=== PATIENT | female | born 1950 | race Caucasian/White ===

== ENCOUNTER 2018-01-20 05:52 | Inpatient (IN) | payer BC ==
[2018-01-20] MEDS ORDERED: oxyCODONE HCL 10 MG SUSTAINED ACTING TABLET PO ONE (06:28)
[2018-01-20] MEDS ORDERED: TRANEXAMIC ACID 1000 MG/10 ML VIAL IVPUSH ONE (06:28)
[2018-01-20] MEDS ORDERED: CEFAZOLIN 2 GM/D5W 2 GM/50 ML ML IVPB ONE (06:28)
[2018-01-20] MEDS ORDERED: GABAPENTIN 300 MG CAPSULE (FP) PO ONE (06:28)
[2018-01-20] MEDS ORDERED: CELECOXIB 200 MG CAPSULE PO ONE (06:28)
[2018-01-20] MEDS ORDERED: GABAPENTIN 300 MG CAPSULE (FP) ONE (06:37)
[2018-01-20] MEDS ORDERED: oxyCODONE HCL 10 MG SUSTAINED ACTING TABLET ONE (06:37)
[2018-01-20] MEDS ORDERED: CELECOXIB 200 MG CAPSULE ONE (06:37)
[2018-01-20 06:59] VITALS: BMI 37.5
[2018-01-20] MEDS ORDERED: MIDAZOLAM HCL 2 MG/2 ML SINGLE DOSE VIAL ONE ×3 (07:06→07:55)
[2018-01-20] MEDS ORDERED: SUCCINYLCHOLINE CHLORIDE 200 MG/10 ML VIAL ONE (07:10)
[2018-01-20] MEDS ORDERED: LIDOCAINE HCL/PF 2% SDV 5ML VIAL ONE (07:11)
[2018-01-20] MEDS ORDERED: PROPOFOL 20 ML ONE ×4 (07:12→08:35)
[2018-01-20] MEDS ORDERED: SODIUM CHLORIDE 0.9% P/F 10 ML VIAL IJ ONE (07:16)
[2018-01-20] MEDS ORDERED: ceFAZolin SODIUM 1 GM VIAL ONE ×2 (07:18→08:17)
[2018-01-20] MEDS ORDERED: VANCOMYCIN 1,000 MG VIAL (RESTRICTED TO ID ONLY) ONE (07:18)
[2018-01-20] MEDS ORDERED: BUPIVACAINE LIPOSOME/PF (EXPAREL) 266 MG/20 ML VIAL ONE (07:18)
--- NOTE | 2018-01-20 07:55 | HP ---
Satellite [facility] - Chief Complaint Chief Complaint: right knee pain - Past Medical History Allergies/Adverse Reactions: Allergies Allergy/AdvReac Type Severity Reaction Status Date / Time clindamycin AdvReac Severe Vomiting Verified 01/09/18 17:30 erythromycin base AdvReac Severe Vomiting Verified 09/19/15 17:33 [Erythromycin Base] - Current Medications Current Medications: Home Medications Medication Instructions Recorded Ascorbic Acid [Vitamin C -] 500 mg PO DAILY #0 tablet 01/01/13 Atorvastatin Ca [Lipitor] 10 mg PO HS #0 tablet 01/01/13 Furosemide [Lasix -] 40 mg PO DAILY #0 tablet 01/01/13 Nifedipine ER [Procardia XL -] 90 mg PO HS #0 tab.er.24 01/01/13 Cholecalciferol (Vitamin D3) 1,000 unit PO DAILY 09/19/15 [Vitamin D] Vitamin B Complex Vit C No.4 150 mg PO DAILY 09/19/15 [Super B Complex] Ibandronate Sodium [Boniva] 3 mg IV MONTHLY 01/09/18 Irbesartan [Avapro] 300 mg PO DAILY 01/09/18 Potassium Chloride [K-Dur -] 20 meq PO DAILY 01/09/18 Satellite Physical Exam - Physical Examination Vital Signs: Vital Signs Period Temp Pulse Resp BP Sys/Tomlinson Pulse Ox Last 24 Hr 97.7 F 88 18 148/70 General Appearance: Well Nourished, Well Developed, Alert & Oriented x3 ENT: Clear Lung: Normal air movement Heart: Regular rate & rhythm Extremities: Other (right knee- + swelling, + ttp, decr rom, nvi xrays show grade 4 tricompartmental djd) Neurological: Intact, Alert, Oriented Satellite Impression/Plan - Impression/Plan Impression: right knee djd Operative Procedure: right zoe tkr Date to be Performed: 01/20/18
[2018-01-20] MEDS ORDERED: TRANEXAMIC ACID 1000 MG/10 ML VIAL ONE (08:17)
[2018-01-20] MEDS ORDERED: KETOROLAC TROMETHAMINE 30 MG/1 ML VIAL ONE (08:50)
[2018-01-20] MEDS ORDERED: MAGNESIUM HYDROX 2400MG/30ML ORAL SUSPENSION 30 ML CUP PO PRN (09:55)
[2018-01-20] MEDS ORDERED: MAG HYDROX/AL HYDROX/SIMETH 30 ML UNIT-DOSE CUP PO PRN (09:55)
[2018-01-20] MEDS ORDERED: ONDANSETRON 4 MG/2 ML VIAL IVPUSH PRN ×2 (09:55→10:06)
--- NOTE | 2018-01-20 09:57 | OP ---
Operative Note - Note: Operative Date: 01/20/18 (francis) Pre-Operative Diagnosis: right knee djd Operation: right zoe tkr Post-Operative Diagnosis: Same as Pre-op Surgeon: Kevin Parker Mainframe Systems Administrator: Steve Ferguson) Anesthesiologist/STUDY COORDINATOR: Charlie Israel Anesthesia: Spinal, Local Specimens Removed: bone fragments Estimated Blood Loss (mls): 100 Operative Report Dictated: Yes
[2018-01-20] MEDS ORDERED: LACTATED RINGERS SOLUTION 1,000 ML IV SCH ×2 (10:00→10:15)
[2018-01-20] MEDS ORDERED: PATIENT'S OWN MEDICATION (NON-FORMULARY) (Irbesartan [Avapro] 300 MG) PO SCH (10:00)
[2018-01-20] MEDS ORDERED: POTASSIUM CHLORIDE TABS 20 MEQ TABLET.ER (FP) PO SCH (10:00)
[2018-01-20] MEDS ORDERED: oxyCODONE HCL 5 MG TABLET PO PRN (10:06)
[2018-01-20] MEDS ORDERED: ACETAMINOPHEN 1000 MG/100 ML VIAL (NON FORMULARY) IVPB ONE (10:06)
[2018-01-20] MEDS ORDERED: ONDANSETRON 4 MG/2 ML VIAL ONE (10:48)
[2018-01-20] MEDS: oxyCODONE HCL 5 MG TABLET PO PRN ×3 (13:19→20:00)
[2018-01-20] MEDS: CEFAZOLIN 2 GM/D5W 2 GM/50 ML ML IVPB SCH (16:02)
[2018-01-20] MEDS: ACETAMINOPHEN 325 MG TABLET (FP) PO SCH (17:46)
--- NOTE | 2018-01-20 20:16 | SPEC ---
DATE OF OPERATION: 01/20/2018 PREOPERATIVE DIAGNOSIS: Degenerative joint disease, right knee. POSTOPERATIVE DIAGNOSIS: Degenerative joint disease, right knee. PROCEDURE: Right total knee replacement with robotic-assisted navigation (Makoplasty). SURGICAL ATTENDING: Kevin Parker MD ATV MECHANIC: LAMONT Marcano and Jose Tafoya MD ANESTHESIA: Regional and spinal. CLOSURE: A cemented Triathlon knee system with a 4 femur, 4 tibia, 9 polyethylene, 32 patella, No. 1 Vicryl fascia, 0 and 2-0 subcutaneous, 3-0 Monocryl subcuticular with skin glue for skin, 4-0 undyed Vicryl for pin sites. ESTIMATED BLOOD LOSS: Less than 100 mL. COMPLICATIONS: None. CONDITION: To recovery room in stable condition. DESCRIPTION OF OPERATIVE PROCEDURE: Patient was taken to the operating room on January 20, 2018. Regional and general anesthesia was administered by the anesthesiologist. IV Kefzol and TXA were administered by the anesthesiologist. Well-padded pneumatic tourniquet was placed on the proximal thigh. The right lower extremity was prepped and draped in the usual sterile fashion. The leg was exsanguinated with an Esmarch bandage, and tourniquet was inflated to 275 mmHg. A 12- to 15-cm longitudinal midline incision was incised while centered over the patella. The dissection was carried down to the level of the extensor mechanism with sufficient flaps made to adequately perform the procedure. A medial parapatellar arthrotomy was then performed. We made a cuff of tissue on the patella for later closure. The patella was inverted, the knee was flexed up. The fat pad was excised. The subperiosteal dissection was on the anteromedial proximal tibia around towards the direction of the MCL. The ACL and the PCL were transected and debrided. The meniscal remnants of the medial and lateral meniscus were debrided and removed. This allowed the knee to be able to "be brought forward." The checkpoints were malleted into the tibia and into the femur. Two threaded pins were drilled anteroposteriorly proximal to the knee through the previous incision, through the anterior cortex, then just engaging the posterior cortex. To these pins was assembled the femoral navigation array. One handbreadth below the tibial tubercle, 2 stab incisions were used to drill 2 threaded pins in parallel fashion into the tibia, again through the anterior cortex and just engaging the posterior cortex. To these pins was fastened the tibial arrays. The knee was then registered with the navigation device with center of rotation of the hip, medial and lateral malleoli, both checkpoints, and multiple points on both the femur and the tibia to ensure excellent registration. The navigation device was directed off the "top of the bubbles" on both the femur and the tibia. The navigation passed within less than 0.5 mm to plan. The knee was then thoroughly inspected to remove all osteophytes both medially, laterally, and on the femur and the tibia, and whatever osteophytes were available for dissection. The knee was then taken to extension and to flexion and stressed in both varus and valgus to assess flexion gaps. The virtual position of the components on the navigation device were then manipulated to optimize the position and to ensure equal gaps in both flexion and extension, and both medially and laterally. The robot was then brought into the field and was registered. The cuts were then made both on the femur and on the tibia as to plan. All osteophytes posteriorly were then removed as well. The gaps were then measured again in flexion and extension to be equal in both flexion and extension and medial and laterally. The femoral notch was then made, as we were doing a posterior stabilizing component, with the appropriate sized box. Trial reduction of the femur achieved excellent [id number] fit. A tibial baseplate of appropriate polyethylene thickness was "floated in the knee." It was ensured to be in the excellent position by navigation devices and was pinned in place. The knee was taken through a range of motion and found to have excellent stability throughout flexion and extension. The patella was calibrated for thickness and osteotomized down to the appropriate level. The appropriate lollipop was used to drill the lug holes in the patella and the trial button was applied. The knee was taken through a range of motion and found to have excellent tracking of the patella, and patella from full extension to full flexion. Trial components were removed, the keel was punched and drilled, and a sclerotic bone on the tibia was drilled to help with cement interdigitation. The knee was thoroughly irrigated with the pulse antibiotic abrasive band winder. The real components were then cemented in using monitored arrangement cement techniques with antibiotic cement, and pressurization and extension. After the cement was hardened, the knee was thoroughly inspected to remove any extra cement. The real polyethylene component was then clipped into place. Range of motion, stability, and tracking were as described earlier. The checkpoints and the pins were removed. The knee was thoroughly irrigated with antibiotic irrigation. Vancomycin powder was placed into the knee for antibiotic prophylaxis. The medial parapatellar arthrotomy was then closed using number 1 Vicryl interrupted suture. After closure of the deep layer, the knee was taken through a range of motion, and found to have excellent stability of the patella with no dislocation and no undue tension on the repair. The subcutaneous was pulse antibiotic irrigated, and was then closed with 2-0 Vicryl, 3-0 Monocryl subcuticular with the skin glue for the skin. The distal tibial pin site was irrigated thoroughly as well and then closed with 4-0 undyed Vicryl. A sterile Aquacel dressing was applied, followed by a Barker dressing. Tourniquet was deflated. Total tourniquet time was approximately 75 minutes. No complications. Patient was awakened from anesthesia and transferred to recovery room in stable condition. Postoperative x-rays revealed excellent position of the components. Ayan [id number]
[2018-01-20] MEDS: oxyCODONE HCL 10 MG SUSTAINED ACTING TABLET PO SCH (21:50)
[2018-01-20] MEDS: ATORVASTATIN CA 10 MG TABLET (FP) PO SCH (21:50)
[2018-01-20] MEDS: NIFEdipine E.R. 90 MG TABLET (FP) PO SCH (21:50)
[2018-01-20] MEDS: SENNOSIDES/DOCUSATE COMBO (SENNA PLUS) TABLET (UD) PO SCH (21:50)
[2018-01-21] MEDS: CEFAZOLIN 2 GM/D5W 2 GM/50 ML ML IVPB SCH
[2018-01-21] MEDS: ACETAMINOPHEN 325 MG TABLET (FP) PO SCH ×5 (01:42→17:42)
[2018-01-21] MEDS: oxyCODONE HCL 5 MG TABLET PO PRN ×3 (01:43→10:14)
[2018-01-21] MEDS: ASPIRIN 325 MG TABLET PO SCH (08:31)
[2018-01-21 08:58] LABS: HEMATOCRIT 35.8 % (32.4-45.2); HEMOGLOBIN 12.1 GM/dl (10.7-15.3); MCH 29.8 pg (25.7-33.7); MCHC 33.6 g/dl (32.0-36.0); MEAN CELL VOLUME 88.6 fl (80-96); MEAN PLT VOLUME 7.4 fl (7.5-11.1); PLATELET COUNT 251 K/MM3 (134-434); RBC 4.05 M/mm3 (3.60-5.2); RDW 12.9 % (11.6-15.6); WHITE BLOOD COUNT 9.4 K/mm3 (4.0-10.8)
[2018-01-21] MEDS: oxyCODONE HCL 10 MG SUSTAINED ACTING TABLET PO SCH ×2 (10:08→22:18)
[2018-01-21] MEDS: PANTOPRAZOLE 40 MG TABLET (FP) PO SCH (10:09)
[2018-01-21] MEDS: POTASSIUM CHLORIDE TABS 20 MEQ TABLET.ER (FP) PO SCH (10:09)
[2018-01-21] MEDS: SENNOSIDES/DOCUSATE COMBO (SENNA PLUS) TABLET (UD) PO SCH ×2 (10:09→22:17)
[2018-01-21] MEDS: MULTIVITAMINS (DAILY MVI) TABLET (FP) PO SCH (10:09)
[2018-01-21] MEDS: LOSARTAN POTASSIUM 50 MG TABLET (FP) PO SCH (10:09)
[2018-01-21] MEDS: FUROSEMIDE 40 MG TABLET (FP) PO SCH (10:09)
--- NOTE | 2018-01-21 10:23 | PN ---
Progress Note (short form) - Note Progress Note: Ortho Pt seen and examined s/p right zoe tkr pod #1 Selected Entries 01/21/18 05:00 Temperature 98.4 F Pulse Rate 102 H Respiratory 20 Rate Blood Pressure 144/51 L Laboratory Tests 01/21/18 07:53 WBC 9.4 Hgb 12.1 Hct 35.8 Plt Count 251 dressing c/d/i, calf soft, nt rom 0-30, nvi a/p PT dvt ppx pain control d/c home tomorrow if stable
--- NOTE | 2018-01-21 11:54 | PN ---
Progress Note (short form) - Note Progress Note: ANESTHESIA POSTOP 67 yo female POD #1 s/p R TKA Patient sitting in chair in some pain. It responds to pain medication. She has been participating in PT. VSS, Afebrile Encouraged IS and active participation in PT. No anesthetic complications.
[2018-01-21] MEDS: NIFEdipine E.R. 90 MG TABLET (FP) PO SCH (22:17)
[2018-01-21] MEDS: ATORVASTATIN CA 10 MG TABLET (FP) PO SCH (22:18)
[2018-01-22] MEDS: ACETAMINOPHEN 325 MG TABLET (FP) PO SCH (06:52)
[2018-01-22 07:01] VITALS: TEMP 99.6
[2018-01-22] MEDS: ASPIRIN 325 MG TABLET PO SCH (07:47)
[2018-01-22 08:49] LABS: HEMOGLOBIN 11.6 GM/dl (10.7-15.3); MEAN CELL VOLUME 88.4 fl (80-96); MEAN PLT VOLUME 7.6 fl (7.5-11.1); PLATELET COUNT 223 K/MM3 (134-434); RBC 3.73 M/mm3 (3.60-5.2); RDW 13.2 % (11.6-15.6)
--- NOTE | 2018-01-22 08:54 | PN ---
Progress Note (short form) - Note Progress Note: Ortho Pt seen and examined s/p right zoe tkr pod #2 Selected Entries 01/22/18 06:00 Temperature 99.6 F Pulse Rate 102 H Respiratory 18 Rate Blood Pressure 154/58 L Laboratory Tests 01/22/18 07:55 WBC Pending Hgb Pending Hct Pending Plt Count Pending dressing c/d/i, calf soft, nt rom 0-30, nvi a/p PT dvt ppx pain control d/c home today f/u in 1 week
--- NOTE | 2018-01-22 08:55 | DS ---
Physical Examination Vital Signs: Vital Signs Temperature 99.6 F 01/22/18 06:00 Pulse Rate 102 H 01/22/18 06:00 Respiratory Rate 18 01/22/18 07:52 Blood Pressure 154/58 L 01/22/18 06:00 O2 Sat by Pulse Oximetry (%) 95 01/22/18 07:52 Discharge Summary Reason For Visit: OSTEOARTHRITIS Procedures: Principal: right tkr Hospital Course: admitted for elective right zoe tkr, uneventful post-op, stable for d/c Condition: Good - Instructions Diet, Activity, Other Instructions: Post-op Instructions-Total Knee Replacement Call the office for a follow-up appointment in 1 week - [phone] Aspirin 325mg daily for 6 weeks. Pain medication was sent into your pharmacy. Apply Graduated Compression Stockings (TEDs) to both lower extremities- remove daily for hygiene ONLY Apply Sequential Compression Device (SCDs) to both Lower extremities remove for PT and hygiene ONLY Apply cold packs to affected area for 15 minutes every 2 hours. Physical Therapist will come to your home for the first 5 days. You will be set up with outpatient PT at your first post-operative visit. Patient may ambulate as tolerated-encourage self care (at least every 2-3 hours while awake) with walker or cane Maintain Aquacel (waterproof) dressing to operative wound (will be removed by surgeon at first office visit) Shower with Aquacel dressing in place-if Aquacel integrity compromised, remove and apply dry sterile dressing and notify Orthopedist. DO NOT SHOWER unless Orthopedists approves without Aquacel dressing CONTACT THE OFFICE FOR ANY CHANGE IN YOUR CONDITION (for example-fever greater than 102 degrees, excessive bleeding from operative site, purulent drainage, severe swelling or pain) GO TO THE EMERGENCY ROOM IF THERE IS A MEDICAL EMERGENCY Knee Precautions: * Keep a rolled towel under affected heel while in bed or chair (to keep knee in extension) * Keep affected leg elevated except during mealtimes * DO NOT PLACE PILLOW UNDER AFFECTED KNEE * If you have any questions, please do not hesitate to call the office - . Referrals: Jose Tafoya MD [Staff Physician] - Disposition: VNS/HOME HEALTH CARE - Home Medications Comprehensive Discharge Medication List: Ambulatory Orders Ascorbic Acid [Vitamin C -] 500 mg PO DAILY #0 tablet 01/01/13 Atorvastatin Ca [Lipitor] 10 mg PO HS #0 tablet 01/01/13 Furosemide [Lasix -] 40 mg PO DAILY #0 tablet 01/01/13 Nifedipine ER [Procardia XL -] 90 mg PO HS #0 tab.er.24 01/01/13 Cholecalciferol (Vitamin D3) [Vitamin D3] 1,000 unit PO DAILY 09/19/15 Vitamin B Complex Vit C No.4 [Super B Complex] 150 mg PO DAILY 09/19/15 Ibandronate Sodium [Boniva] 3 mg IV MONTHLY 01/09/18 Irbesartan [Avapro] 300 mg PO DAILY 01/09/18 Potassium Chloride [K-Dur -] 20 meq PO DAILY 01/09/18 Aspirin [ASA -] 325 mg PO DAILY@0800 tablet 01/20/18 Oxycodone HCl/Acetaminophen [Percocet 5-325 mg Tablet -] 1 - 2 tab PO Q6H #50 tab MDD 8 01/20/18
[2018-01-22] MEDS: LOSARTAN POTASSIUM 50 MG TABLET (FP) PO SCH (09:34)
[2018-01-22] MEDS: POTASSIUM CHLORIDE TABS 20 MEQ TABLET.ER (FP) PO SCH (09:34)
[2018-01-22] MEDS: PANTOPRAZOLE 40 MG TABLET (FP) PO SCH (09:34)
[2018-01-22] MEDS: SENNOSIDES/DOCUSATE COMBO (SENNA PLUS) TABLET (UD) PO SCH (09:35)
[2018-01-22] MEDS: MULTIVITAMINS (DAILY MVI) TABLET (FP) PO SCH (09:35)
[2018-01-22] MEDS: oxyCODONE HCL 10 MG SUSTAINED ACTING TABLET PO SCH (09:36)
[2018-01-22] MEDS: FUROSEMIDE 40 MG TABLET (FP) PO SCH (09:39)
[2018-01-22 09:41] VITALS: BP 131/51; PULSE 90
--- NOTE | 2018-01-26 17:02 | PATH ---
Surgical Pathology Report Patient Name: ALECIA CERVANTES Med. Rec. #: [id number] /Age/Gender: 1950 (Age: 67) / F Account: [id number] Location: [facility] Taken: 01/20/2018 Received: 01/21/2018 Reported: 01/26/2018 Physicians: Kevin Parker M.D. Specimen(s) Received BONE RIGHT KNEE Clinical History Right knee osteoarthritis Final Diagnosis BONE, KNEE, RIGHT, TOTAL KNEE REPLACEMENT: BONE WITH DEGENERATIVE JOINT DISEASE AND REACTIVE SYNOVIUM. Electronically Signed Karen Sandoval M.D. Gross Description Received in formalin labeled "bone right knee," is a 9.5 x 8.5 x 2.0 cm aggregate of multiple portions of bone and soft tissue, consistent with knee bones. The articular surfaces are link-yellow and diffusely granular. No areas of eburnation are identified. The underlying trabecular bone is yellow and hard. Roller Skater sections are submitted in one cassette, following decalcification. [facility]/01/22/2018
== END 2018-01-22 11:21 | disposition home health service (06) | DRG 470 ==
LOC: FM/S 05:52
PROVIDERS: ADMIT Orthopaedic Surgery; ATTEND Orthopaedic Surgery
PROC: 8E0Y0CZ Robotic Assisted Procedure of Lower Extremity, Open Approach (ICD-10-PCS; 2018-01-20)
PROC: 0SRC0J9 Replacement of Right Knee Joint with Synthetic Substitute, Cemented, Open Approach (ICD-10-PCS; principal; 2018-01-20 08:00)
DX: M17.11 Unilateral primary osteoarthritis, right knee (principal)
CPT/HCPCS: 36415; 73560-TC-RT-FY; 85027; 88305-TC; 88311-TC; 94760; 97116-GP; 97162-GP; J0131

== ENCOUNTER 2018-03-11 13:27 | Inpatient (IN) | payer BC ==
--- NOTE | 2018-03-11 13:49 | PDOC ---
History of Present Illness - General Chief Complaint: Redness To Affected Area Stated Complaint: REDNESS TO AFFECTED AREA (PCP SENT) History Source: Patient Exam Limitations: No Limitations - History of Present Illness Initial Comments: 03/11/18 14:14 68 yo F with a hx of HTN, HLD, a recent right total knee replacement (12/2017), and hx of multiple ulcers on the right leg presents with new onset of rash on her right leg. Per the patient, she has been feeling generalized weakness with fever/chills for 2 days (not currently). Starting this morning, a rash developed on the right leg that is new for her with swelling of the right leg ( has swelling in the past on lasix). Denies recent trauma. Per the patient, she has had multiple ulcers throughout her right leg with multiple scars. She currently has an active ulcer between her 1st-2nd toes on the right foot treated by Dr. Gregorio with failed outpatient abx course. Currently states she feels better in terms of generalized weakness but still "feel off". Denies the following: fever, chills, nausea, vomiting, chest pain, SOB, abdominal pain, dysuria, hematuria, diarrhea, hematochezia, melena, and anemia. Denies recent travels, hx of DVT/PE, and recent immobilization. Pmhx: Refer to above Shx: Refer to above Meds: lasix, nifedipine, and lipitor. Allergies: clindamycin, erythromycin Social: Denies tobacco, alcohol, and substance abuse. Past History - Past Medical History Allergies/Adverse Reactions: Allergies Allergy/AdvReac Type Severity Reaction Status Date / Time clindamycin AdvReac Severe Vomiting Verified 03/11/18 14:03 erythromycin base AdvReac Severe Vomiting Verified 03/11/18 14:03 [Erythromycin Base] levofloxacin [From Levaquin] AdvReac Nausea Verified 03/11/18 20:57 Home Medications: Ambulatory Orders Ascorbic Acid [Vitamin C -] 500 mg PO DAILY #0 tablet 01/01/13 Atorvastatin Ca [Lipitor] 10 mg PO HS #0 tablet 01/01/13 Furosemide [Lasix -] 40 mg PO DAILY #0 tablet 01/01/13 Nifedipine ER [Procardia XL -] 90 mg PO HS #0 tab.er.24 01/01/13 Cholecalciferol (Vitamin D3) [Vitamin D3] 1,000 unit PO DAILY 09/19/15 Vitamin B Complex Vit C No.4 [Super B Complex] 150 mg PO DAILY 09/19/15 Ibandronate Sodium [Boniva] 3 mg IV MONTHLY 01/09/18 Irbesartan [Avapro] 300 mg PO DAILY 01/09/18 Potassium Chloride [K-Dur -] 20 meq PO DAILY 01/09/18 Pantoprazole Sodium [Protonix -] 40 mg PO DAILY #30 tablet.ec 01/22/18 Anemia: No Asthma: No Cancer: No Cardiac Disorders: No CVA: No COPD: No CHF: No Dementia: No Diabetes: No GI Disorders: No Disorders: No HTN: Yes Hypercholesterolemia: Yes Liver Disease: No Seizures: No Thyroid Disease: No - Surgical History Abdominal Surgery: No Appendectomy: No Cardiac Surgery: No Cholecystectomy: No Lung Surgery: No Neurologic Surgery: No Orthopedic Surgery: Yes (vein ablation rt leg 2013) - Suicide/Smoking/Psychosocial Hx Smoking History: Never smoked Have you smoked in the past 12 months: No Number of Cigarettes Smoked Daily: 0 If you are a former smoker, when did you quit?: n Cigars Per Day: 0 Hx Alcohol Use: No Drug/Substance Use Hx: No Substance Use Type: None Hx Substance Use Treatment: No Review of Systems - Review of Systems Able to Perform ROS?: Yes Is the patient limited Lao proficient: No Constitutional: Yes: Weakness. No: Chills, Diaphoresis, Fever HEENTM: No: Recent change in vision, Ear Pain, Nose Pain, Throat Pain, Mouth Pain Respiratory: No: Cough, Shortness of Breath, SOB with Exertion, Hemoptysis Cardiac (ROS): No: Chest Pain, Lightheadedness, Palpitations, Syncope, Chest Tightness ABD/GI: Yes: Poor Appetite, Poor Fluid Intake. No: Constipated, Diarrhea, Nausea, Rectal Bleeding, Vomiting, Tarry Stools : No: Burning, Dysuria, Flank Pain, Hematuria Musculoskeletal: Yes: Back Pain. No: Joint Pain, Neck Pain Integumentary: Yes: Erythema, Rash. No: Sweating Neurological: No: Headache, Numbness, Tremors, Weakness, Ataxia Psychiatric: No: Stressors Endocrine: No: Unexplained Weight Gain Hematologic/Lymphatic: No: Anemia, Blood Clots *Physical Exam - Physical Exam General Appearance: Yes: Nourished, Appropriately Dressed, Obese. No: Apparent Distress, Intoxicated HEENT: positive: EOMI, CHERRI, Normal Voice, Symmetrical, Pharynx Normal, Hearing Grossly Normal. negative: Pale Conjunctivae, Scleral Icterus (R), Scleral Icterus (L), Muffled/Hoarse voice, Pharyngeal Erythema, Nasal Congestion, Rhinorrhea, Excessive drooling Neck: positive: Trachea midline. negative: Tender, Lymphadenopathy (R), Lymphadenopathy (L), Tender lateral, Tender midline Respiratory/Chest: positive: Lungs Clear, Normal Breath Sounds. negative: Chest Tender, Respiratory Distress, Accessory Muscle Use, Crackles, Rhonchi, Stridor, Wheezing Cardiovascular: positive: Regular Rhythm, Regular Rate, S1, S2, Systolic Murmur (grade 1) Gastrointestinal/Abdominal: positive: Normal Bowel Sounds, Flat, Soft. negative : Tender Lymphatic: negative: Adenopathy Musculoskeletal: positive: Normal Inspection. negative: CVA Tenderness, Vertebral Tenderness Extremity: positive: Normal Capillary Refill, Normal Range of Motion, Pedal Edema, Swelling. negative: Normal Inspection, Tender Heart Score/ECG Review - ECG Intrepretation Comment:: 03/12/18 00:28 ventricular rate is 93 bpm, NC is 136 ms, QRS is 82 ms, QTc is 450 ms. Normal sinus rhythm without ST elevations or depressions. ED Treatment Course - LABORATORY CBC & Chemistry Diagram: 03/11/18 15:22 03/11/18 15:22 Medical Decision Making - Medical Decision Making 03/12/18 00:28 68 yo F with a hx of HTN, HLD, a recent right total knee replacement (12/2017), and hx of multiple ulcers on the right leg presents with new onset of rash on her right leg. Initial vitals: Initial Vital Signs Temp Pulse Resp BP Pulse Ox 98.1 F 70 16 119/61 100 03/11/18 13:30 03/11/18 13:30 03/11/18 13:30 03/11/18 13:30 03/11/18 13:30 Work up: cellulitis vs osteomyelitis vs abscess formation vs DVT vs thrombophlebitis. likely this is cellulitis given the presentation and lack of asymmetrical swelling, lack of proximal ulcer, lack of fluctuance on exam, and non tenderness to palpation. will order labs and imaging to rule out osteo. Laboratory Tests 12/03/1703/11/18 03/11/18 15:15 15:22 15:22 WBC 14.0 H RBC 4.16 Hgb 12.4 Hct 36.1 MCV 86.7 MCH 29.7 MCHC 34.3 RDW 15.0 Plt Count 295 MPV 7.2 L Absolute Neuts (auto) 11.8 H Neutrophils % 84.4 H Lymphocytes % 10.2 Monocytes % 4.6 Eosinophils % 0.1 Basophils % 0.7 Nucleated RBC % 0 PT with INR 13.00 INR 1.10 H PTT (Actin FS) 33.5 Sodium Potassium Chloride Carbon Dioxide Anion Gap BUN Creatinine Creat Clearance w eGFR Random Glucose Lactic Acid Calcium Total Bilirubin AST ALT Alkaline Phosphatase Troponin I Total Protein Albumin Urine Color Yellow Urine Appearance Slcloudy Urine pH 5.0 Ur Specific [place] 1.023 Urine Protein 1+ H Urine Glucose (UA) Negative Urine Ketones Negative Urine Blood Negative Urine Nitrite Negative Urine Bilirubin Negative Urine Urobilinogen Negative Ur Leukocyte Esterase 1+ H Urine WBC (Auto) 12 Urine RBC (Auto) 5 Ur Epithelial Cells Rare Urine Bacteria Rare Urine Mucus Rare 03/11/18 03/11/18 03/11/18 15:22 15:22 15:22 WBC RBC Hgb Hct MCV MCH MCHC RDW Plt Count MPV Absolute Neuts (auto) Neutrophils % Lymphocytes % Monocytes % Eosinophils % Basophils % Nucleated RBC % PT with INR INR PTT (Actin FS) Sodium 140 Potassium 3.6 Chloride 107 Carbon Dioxide 21 Anion Gap 12 BUN 18 Creatinine 0.9 Creat Clearance w eGFR > 60 Random Glucose 85 Lactic Acid 2.0 Calcium 8.6 Total Bilirubin 0.6 AST 37 ALT 38 Alkaline Phosphatase 92 Troponin I < 0.02 Total Protein 7.5 Albumin 3.7 Urine Color Urine Appearance Urine pH Ur Specific [place] Urine Protein Urine Glucose (UA) Urine Ketones Urine Blood Urine Nitrite Urine Bilirubin Urine Urobilinogen Ur Leukocyte Esterase Urine WBC (Auto) Urine RBC (Auto) Ur Epithelial Cells Urine Bacteria Urine Mucus WBC elevated at 14.0. The patient was started on vanco and zosyn. the UA shows a mildly positive UTI. Will admit the patient for IV antibiotics for treatment of cellulitis. at the time of admission, the patient was stable. Dispo: Admit. *DC/Admit/Observation/Transfer Diagnosis at time of Disposition: Cellulitis Qualifiers: Site of cellulitis: extremity Site of cellulitis of extremity: lower extremity Laterality: right Qualified Code(s): L03.115 - Cellulitis of right lower limb - Referrals - Patient Instructions - Post Discharge Activity
--- NOTE | 2018-03-11 14:28 | PDOC ---
Attending Attestation - HPI HPI: This is a 68 year old female, with a significant past medical history of HTN, HLD, right TKR, and ulcers on right leg, who presents to the emergency department today complaining of fever/chills for 2 days and a rash on the right leg for 1 day. Patient reports associated diffuse weakness with the fever/ chills. Patient notes that the rash developed upon waking up in the morning, and reports associated LE swelling. She also mentions that she has multiple ulcers down her RLE, and well as multiple scars. At this time, patient presents with an active ulcer between her 1st-2nd toes on the right foot, which is being treated by Dr. Gregorio. Although patient notes she is asymptomatic at this time, she reports that she still does not feel normal. The patient denies chest pain, shortness of breath, headache and dizziness. Denies fever, chills, nausea, vomit, diarrhea and constipation. Denies dysuria, frequency, urgency and hematuria. Allergies: Clindamycin, Erythromycin Past surgical history: Tiburcio per HPI Social history: Denies EtOH, tobacco, or recreational drug use PCP: Dr. Lorenzo 03/11/18 16:00 - Physicial Exam PE: GENERAL: The patient is in no acute distress. HEAD: Normal with no signs of trauma. EYES: PERRLA, EOMI, sclera anicteric, conjunctiva clear. ENT: Ears normal, nares patent, oropharynx clear without exudates. Moist mucous membranes. NECK: Normal range of motion, supple without lymphadenopathy, JVD, or masses. LUNGS: Breath sounds equal, clear to auscultation bilaterally. No wheezes, and no crackles. HEART:Regular rate and rhythm, normal S1 and S2 without murmur, rub or gallop. ABDOMEN: Soft, nontender, normoactive bowel sounds. No guarding, no rebound. No masses palpable. EXTREMITIES: +Bilateral LE edema. +Right leg erythema medially. +Ulcer between 1st and 2nd toe. Normal range of motion. No clubbing or cyanosis. No tenderness. NEUROLOGICAL: Cranial nerves II through XII grossly intact. Normal speech. No focal neurological deficits. MUSCULOSKELETAL: Back non-tender to palpation, no CVA tenderness SKIN: Warm, Dry, normal turgor, no rashes or lesions noted. 03/11/18 16:00 <Jenni Arambula - Last Filed: 03/11/18 16:00> - Resident Resident Name: Blaze Hager - ED Attending Attestation I have performed the following: I have examined & evaluated the patient, The case was reviewed & discussed with the resident, I agree w/resident's findings & plan, Exceptions are as noted - Medical Decision Making 03/11/18 16:27 Laboratory Tests 03/11/18 03/11/18 03/11/18 15:22 15:22 15:22 WBC 14.0 H Hgb 12.4 Hct 36.1 Plt Count 295 INR 1.10 H BUN 18 Creatinine 0.9 Troponin I 03/11/18 15:22 WBC Hgb Hct Plt Count INR BUN Creatinine Troponin I < 0.02 Duplex pending Xray pending Will give abx Anticipate admission Pt signed out to Dr Tom <Tarsha Hassan - Last Filed: 03/13/18 18:37>
[2018-03-11] MEDS ORDERED: VANCOMYCIN 1 GRAM (PRE-DOCKED) 1,000 MG/250 ML BAG IVPB ONE ×2 (14:39→16:12)
[2018-03-11] MEDS ORDERED: PIPERACILLIN/TAZOB 3.375 GM 3.375 GM in DEXTROSE 5%-WATER - 50 ML IVPB ONE (14:39)
[2018-03-11 15:33] LABS: BASO % 0.7 % (0-2.0); EOS % 0.1 % (0-4.5); HEMATOCRIT 36.1 % (32.4-45.2); HEMOGLOBIN 12.4 GM/dL (10.7-15.3); LYMPH % 10.2 % (8-40); MCH 29.7 pg (25.7-33.7); MCHC 34.3 g/dl (32.0-36.0); MEAN CELL VOLUME 86.7 fl (80-96); MEAN PLT VOLUME 7.2 fl (7.5-11.1); MONO % 4.6 % (3.8-10.2); NEUT % 84.4 % (42.8-82.8); PLATELET COUNT 295 K/MM3 (134-434); RBC 4.16 M/mm3 (3.60-5.2)
[2018-03-11 15:54] LABS: INR 1.1 (0.83-1.09)
[2018-03-11 15:57] LABS: ACTIVATED PTT 33.5 SECONDS (25.2-36.5)
[2018-03-11 15:57] LABS: URINE APPEARANCE SLCLOUDY; URINE BILIRUBIN NEGATIVE (<2.0 mg/dL); URINE GLUCOSE (UA) NEGATIVE (NEGATIVE); URINE KETONE NEGATIVE (NEGATIVE); URINE LEUK ESTERASE 1+ (NEGATIVE); URINE NITRITE NEGATIVE (NEGATIVE); URINE PROTEIN 1+ (NEGATIVE); URINE UROBILINOGEN NEGATIVE mg/dL (0.2-1.0)
[2018-03-11 16:01] LABS: ALBUMIN 3.7 g/dl (3.4-5.0); ALK PHOS 92 U/L (45-117); ANION GAP 12 MMOL/L (8-16); BILIRUBIN,TOTAL 0.6 mg/dL (0.2-1); BLOOD UREA NITROGEN 18 mg/dL (7-18); CALCIUM 8.6 mg/dL (8.5-10.1); CHLORIDE 107 mmol/L (98-107); CO2 21 mmol/L (21-32); CREATININE 0.9 mg/dL (0.55-1.3); GLUCOSE,RANDOM 85 mg/dL (74-106); POTASSIUM 3.6 mmol/L (3.5-5.1); SGOT/AST 37 U/L (15-37); SGPT/ALT 38 U/L (13-61); SODIUM 140 mmol/L (136-145); TOT PROT 7.5 g/dl (6.4-8.2)
[2018-03-11] MEDS ORDERED: PIPERACILLIN/TAZOB 3.375 GM 3.375 GM/50 ML BAG IVPB ONE (16:12)
[2018-03-11 16:31] LABS: URINE COLOR YELLOW
[2018-03-11 16:34] LABS: EPI CELLS RARE /HPF (FEW); URINE BACTERIA RARE /hpf (NONE SEEN); URINE MUCUS RARE
[2018-03-11] MEDS ORDERED: ACETAMINOPHEN 1000 MG/100 ML VIAL (NON FORMULARY) IVPB ONE (18:07)
[2018-03-11] MEDS ORDERED: ONDANSETRON 4 MG/2 ML VIAL IVPUSH PRN (18:10)
--- NOTE | 2018-03-11 18:23 | HP ---
Admitting History and Physical - Primary Care Physician PCP: Maged Lorenzo - Admission Chief Complaint: My leg is red History of Present Illness: Ms Patel is a very pleasant 68 year old female who was sent in secondary to RLE redness. She says she started feeling bad on Friday. Friday evening she felt feverish and had chills. This persisted both Friday and Friday. While the fevers/chills resolved, she noted that she had RLE redness starting today with swelling of that area. She says it is red and warm but not painful. She also felt general malaise and loss of appetite associated with this. She saw her traffic police officer and orthopedic surgeon who sent her in for further evaluation. Aside from this she complains of chronic R foot pain. She has a chronic ulcer between her large and first toe that is being followed by Dr Gregorio. There is chronic discoloration there that is unchanged. She says the pain is unchanged as well. She denies lightheadedness, dizziness, passing out, chest pain or pressure, shortness of breath, coughing, nausea, vomiting, abdominal pain, diarrhea, constipation, difficulty or pain in urination, or swelling/redness of her left leg. History Source: Patient Limitations to Obtaining History: No Limitations - Past Medical History Cardiovascular: Yes: HTN, Hyperlipdemia - Past Surgical History Past Surgical History: Yes: Cataract Removal, Joint Replacement (R TKR in 01/15) - Smoking History Smoking history: Never smoked Have you smoked in the past 12 months: No Aproximately how many cigarettes per day: 0 If you are a former smoker, when did you quit?: n - Alcohol/Substance Use Hx Alcohol Use: No History of Substance Use: reports: None - Social History Usual Living Arrangement: Yes: With Spouse ADL: Independent History of Recent Travel: No Home Medications - Allergies Allergies/Adverse Reactions: Allergies Allergy/AdvReac Type Severity Reaction Status Date / Time clindamycin AdvReac Severe Vomiting Verified 03/11/18 14:03 erythromycin base AdvReac Severe Vomiting Verified 03/11/18 14:03 [Erythromycin Base] - Home Medications Home Medications: Ambulatory Orders Ascorbic Acid [Vitamin C -] 500 mg PO DAILY #0 tablet 01/01/13 Atorvastatin Ca [Lipitor] 10 mg PO HS #0 tablet 01/01/13 Furosemide [Lasix -] 40 mg PO DAILY #0 tablet 01/01/13 Nifedipine ER [Procardia XL -] 90 mg PO HS #0 tab.er.24 01/01/13 Cholecalciferol (Vitamin D3) [Vitamin D3] 1,000 unit PO DAILY 09/19/15 Vitamin B Complex Vit C No.4 [Super B Complex] 150 mg PO DAILY 09/19/15 Ibandronate Sodium [Boniva] 3 mg IV MONTHLY 01/09/18 Irbesartan [Avapro] 300 mg PO DAILY 01/09/18 Potassium Chloride [K-Dur -] 20 meq PO DAILY 01/09/18 Pantoprazole Sodium [Protonix -] 40 mg PO DAILY #30 tablet.ec 01/22/18 Family Disease History - Family Disease History Family Disease History: Heart Disease: Father (HTN), Mother (HTN), Other: Sister (RA) Review of Systems Findings/Remarks: Full review of systems obtained, as per HPI and otherwise negative Physical Examination Vital Signs: Vital Signs Temperature 36.7 C 03/11/18 13:30 Pulse Rate 70 03/11/18 13:30 Respiratory Rate 16 03/11/18 13:30 Blood Pressure 119/61 03/11/18 13:30 O2 Sat by Pulse Oximetry (%) 100 03/11/18 13:30 Constitutional: Yes: No Distress, Calm, Obese Eyes: Yes: Conjunctiva Clear, EOM Intact, PERRL HENT: Yes: Atraumatic, Normocephalic Cardiovascular: Yes: Regular Rate and Rhythm. No: Gallop, Murmur, Rub Respiratory: Yes: Regular, CTA Bilaterally. No: Rales, Rhonchi, Wheezes Gastrointestinal: Yes: Normal Bowel Sounds, Soft. No: Distention, Tenderness Extremities: Yes: Erythema, Other (small ulceration in erythematous area, chronic ulceration with erythema on dorsal RLE, ulceration with blackening of the R foot) Edema: Yes Edema: RLE: 1+ Labs: CBC, BMP 03/11/18 15:22 03/11/18 15:22 Imaging - Results Chest X-ray: Image Reviewed X-ray: Report Reviewed EKG: Image Reviewed Problem List - Problems (1) Cellulitis and abscess of right lower extremity Assessment/Plan: -patient presents with one day history of RLE cellulitis -has small wound in area, suspect source of infection -x-ray reviewed and no sign of gas -however with rapid onset and unusual discoloration -lower suspicion for necrotizing fasciitis but since with wound and rapid onset will obtain CT scan to eval for gas -given vancomycin and zosyn in the ED, will continue -ID consult -will consult Dr Tafoya since with recent surgery Code(s): L03.115 - CELLULITIS OF RIGHT LOWER LIMB; L02.415 - CUTANEOUS ABSCESS OF RIGHT LOWER LIMB (2) HTN (hypertension) Assessment/Plan: -continue lasix, nifedipine, and avapro -monitor in case becomes hypotensive considering infection Code(s): I10 - ESSENTIAL (PRIMARY) HYPERTENSION (3) HLD (hyperlipidemia) Assessment/Plan: -continue lipitor Code(s): E78.5 - HYPERLIPIDEMIA, UNSPECIFIED (4) Ulcer of right foot with fat layer exposed Assessment/Plan: -chronic -consult Dr Gregorio Code(s): L97.512 - NON-PRS CHRONIC ULCER OTH PRT RIGHT FOOT W FAT LAYER EXPOSED
[2018-03-11] MEDS ORDERED: ACETAMINOPHEN INJECTION 100 ML IVPB ONE (18:31)
[2018-03-11 20:42] VITALS: BMI 38.5
[2018-03-11] MEDS: ACETAMINOPHEN 500 MG TABLET (FP) PO ONE ×2 (21:25→21:26)
[2018-03-11] MEDS: LACTOBACILLUS ACIDOPHILUS 1 TABLET PO SCH ×2 (21:26→22:06)
[2018-03-11] MEDS ORDERED: PIPERACILLIN/TAZOBACTAM 3.375 GM VIAL IVPB ONE (21:31)
[2018-03-11] MEDS ORDERED: DEXTROSE 5%-WATER - 50 ML IVPB ONE (21:31)
[2018-03-11] MEDS: PIPERACILLIN/TAZOB 3.375 GM 3.375 GM in DEXTROSE 5%-WATER - 50 ML IVPB SCH (22:06)
[2018-03-11] MEDS: NIFEdipine E.R. 90 MG TABLET (FP) PO SCH (22:06)
[2018-03-11] MEDS: ATORVASTATIN CA 10 MG TABLET (FP) PO SCH (22:07)
[2018-03-11] MEDS: ACETAMINOPHEN 325 MG TABLET (FP) PO PRN (22:07)
[2018-03-12] MEDS ORDERED: DEXTROSE 5%-WATER - 50 ML IVPB ONE ×4 (01:59→23:54)
[2018-03-12] MEDS ORDERED: PIPERACILLIN/TAZOBACTAM 3.375 GM VIAL IVPB ONE ×4 (01:59→23:54)
[2018-03-12] MEDS ORDERED: VANCOMYCIN 1,000 MG in DEXTROSE 5%-WATER - 250 ML IVPB ONE (02:00)
[2018-03-12] MEDS: PIPERACILLIN/TAZOB 3.375 GM 3.375 GM in DEXTROSE 5%-WATER - 50 ML IVPB SCH ×3 (02:30→17:30)
[2018-03-12 07:34] LABS: BASO % 1.1 % (0-2.0); EOS % 1.5 % (0-4.5); HEMATOCRIT 31.9 % (32.4-45.2); HEMOGLOBIN 10.5 GM/dL (10.7-15.3); LYMPH % 16.2 % (8-40); MCH 28.7 pg (25.7-33.7); MCHC 32.9 g/dl (32.0-36.0); MEAN CELL VOLUME 87.5 fl (80-96); MEAN PLT VOLUME 7.1 fl (7.5-11.1); MONO % 9.4 % (3.8-10.2); NEUT % 71.8 % (42.8-82.8); PLATELET COUNT 229 K/MM3 (134-434); RBC 3.65 M/mm3 (3.60-5.2); WHITE BLOOD COUNT 8.3 K/mm3 (4.0-10.0)
[2018-03-12 08:50] LABS: ANION GAP 11 MMOL/L (8-16); BLOOD UREA NITROGEN 18 mg/dL (7-18); CALCIUM 7.9 mg/dL (8.5-10.1); CHLORIDE 109 mmol/L (98-107); CO2 21 mmol/L (21-32); CREATININE 0.7 mg/dL (0.55-1.3); GLUCOSE,RANDOM 85 mg/dL (74-106); MAGNESIUM 2.4 mg/dL (1.8-2.4); PHOSPHOROUS 2.1 mg/dL (2.5-4.9); POTASSIUM 3.3 mmol/L (3.5-5.1); SODIUM 141 mmol/L (136-145)
[2018-03-12] MEDS: ENOXAPARIN NA (PORCINE) 40 MG/0.4 ML DISP.SYRIN SQ SCH (09:41)
[2018-03-12] MEDS: LACTOBACILLUS ACIDOPHILUS 1 TABLET PO SCH (09:42)
[2018-03-12] MEDS: PANTOPRAZOLE 40 MG TABLET (FP) PO SCH (09:42)
[2018-03-12] MEDS: ASCORBIC ACID 500 MG TABLET (FP) PO SCH (09:42)
[2018-03-12] MEDS: FUROSEMIDE 40 MG TABLET (FP) PO SCH (09:42)
[2018-03-12] MEDS: LOSARTAN POTASSIUM 50 MG TABLET (FP) PO SCH (09:42)
[2018-03-12] MEDS: POTASSIUM CHLORIDE TABS 20 MEQ TABLET.ER (FP) PO SCH (09:42)
[2018-03-12] MEDS: VITAMIN B COMP W-C 1 EA TABLET PO SCH (09:42)
[2018-03-12] MEDS: CHOLECALCIFEROL (VITAMIN D3) 1,000 UNIT TABLET (FP) PO SCH (09:43)
[2018-03-12] MEDS ORDERED: PATIENT'S OWN MEDICATION (NON-FORMULARY) (Irbesartan [Avapro] 300 MG) PO SCH (10:00)
[2018-03-12] MEDS ORDERED: PIPERACILLIN/TAZOB 3.375 GM 3.375 GM in DEXTROSE 5%-WATER - 50 ML IVPB SCH (10:00)
[2018-03-12] MEDS ORDERED: VITAMIN B COMPLEX VIT C NO 4 PO SCH (10:00)
--- NOTE | 2018-03-12 10:11 | PN ---
Progress Note (short form) - Note Progress Note: Pt seen and examined. In summary she is a 68 year old female pt who is s/p right TKR, and a history of PVD, possible peripheral vascular insufficiency, poorly/non healing ulcers on the right lower leg and foot. She came in 1 day ago with symptoms c/w a right lower leg cellulitis. She states she is getting better, less erythema of the right LE, less hot, less swollen. AVSS WBC improved to 8.3 Xrays Right knee look good, R TKR prosthesis looks good, in a good position, no fractures, no periprosthetic loosening PE Right lower leg with 2 nonhealed ulcers. No drainage, no pus, no fluid collection. + area of erythema, + mildly warm, + mildly swollen lower leg, calf, muhammad , ankle Right knee looks fine, not hot, no effusion, not swollen, not tender, full ROM without pain Imp Right lower leg cellulitis, right TKR is not effected Rec Con't IV antibiotics Elevate WBAT, can ambulate, with P.T. if necessary Will follow
--- NOTE | 2018-03-12 12:21 | PN ---
Physical Exam: SUBJECTIVE: Patient seen and examined at bedside. No overnight events. No new complaints. Leg pain persist but improved. Denies CP,STONE, SOB, palpitations, abdominal pain, nausea and vomiting. OBJECTIVE: Vital Signs Period Temp Pulse Resp BP Sys/Tomlinson Pulse Ox Last 24 Hr 98.1 F-98.8 F 70-93 16-18 103-136/51-75 96-100 GENERAL:AAOx3, NAD HEAD: NCAT EYES: PERRL, EOMI, sclera anicteric, conjunctiva clear. No ptosis. ENT: moist mucous membranes. NECK: supple, No jvd LUNGS:CTAB , no wheezes, no crackles, no accessory muscle use. HEART: RRR, S1, S2 without murmur, rub or gallop. ABDOMEN: Soft, nontender, nondistended, normoactive bowel sounds, no guarding EXTREMITIES: 2+ pulses, warm, well-perfused, no edema. 1x1 cm ulcer on medial aspect of 2nd right toe. NEUROLOGICAL: Cranial nerves II through XII grossly intact. Normal speech, gait not observed. PSYCH: Normal mood, normal affect. SKIN: erythema and warmth of RLE from ankle to mid tibial region. Laboratory Results - last 24 hr 03/11/18 03/11/18 03/11/18 15:15 15:22 15:22 WBC 14.0 H RBC 4.16 Hgb 12.4 Hct 36.1 MCV 86.7 MCH 29.7 MCHC 34.3 RDW 15.0 Plt Count 295 MPV 7.2 L Absolute Neuts (auto) 11.8 H Neutrophils % 84.4 H Lymphocytes % 10.2 Monocytes % 4.6 Eosinophils % 0.1 Basophils % 0.7 Nucleated RBC % 0 PT with INR 13.00 INR 1.10 H PTT (Actin FS) 33.5 Sodium Potassium Chloride Carbon Dioxide Anion Gap BUN Creatinine Creat Clearance w eGFR Random Glucose Lactic Acid Calcium Phosphorus Magnesium Total Bilirubin AST ALT Alkaline Phosphatase Troponin I Total Protein Albumin Urine Color Yellow Urine Appearance Slcloudy Urine pH 5.0 Ur Specific Keyes 1.023 Urine Protein 1+ H Urine Glucose (UA) Negative Urine Ketones Negative Urine Blood Negative Urine Nitrite Negative Urine Bilirubin Negative Urine Urobilinogen Negative Ur Leukocyte Esterase 1+ H Urine WBC (Auto) 12 Urine RBC (Auto) 5 Ur Epithelial Cells Rare Urine Bacteria Rare Urine Mucus Rare 03/11/18 03/11/18 03/11/18 15:22 15:22 15:22 WBC RBC Hgb Hct MCV MCH MCHC RDW Plt Count MPV Absolute Neuts (auto) Neutrophils % Lymphocytes % Monocytes % Eosinophils % Basophils % Nucleated RBC % PT with INR INR PTT (Actin FS) Sodium 140 Potassium 3.6 Chloride 107 Carbon Dioxide 21 Anion Gap 12 BUN 18 Creatinine 0.9 Creat Clearance w eGFR > 60 Random Glucose 85 Lactic Acid 2.0 Calcium 8.6 Phosphorus Magnesium Total Bilirubin 0.6 AST 37 ALT 38 Alkaline Phosphatase 92 Troponin I < 0.02 Total Protein 7.5 Albumin 3.7 Urine Color Urine Appearance Urine pH Ur Specific Keyes Urine Protein Urine Glucose (UA) Urine Ketones Urine Blood Urine Nitrite Urine Bilirubin Urine Urobilinogen Ur Leukocyte Esterase Urine WBC (Auto) Urine RBC (Auto) Ur Epithelial Cells Urine Bacteria Urine Mucus 03/11/18 03/12/18 03/12/18 17:51 06:45 06:45 WBC 8.3 RBC 3.65 Hgb 10.5 L Hct 31.9 L MCV 87.5 MCH 28.7 MCHC 32.9 RDW 15.0 Plt Count 229 D MPV 7.1 L Absolute Neuts (auto) 5.9 Neutrophils % 71.8 Lymphocytes % 16.2 D Monocytes % 9.4 D Eosinophils % 1.5 D Basophils % 1.1 Nucleated RBC % 0 PT with INR INR PTT (Actin FS) Sodium 141 Potassium 3.3 L Chloride 109 H Carbon Dioxide 21 Anion Gap 11 BUN 18 Creatinine 0.7 Creat Clearance w eGFR > 60 Random Glucose 85 Lactic Acid 1.3 Calcium 7.9 L Phosphorus 2.1 L Magnesium 2.4 Total Bilirubin AST ALT Alkaline Phosphatase Troponin I Total Protein Albumin Urine Color Urine Appearance Urine pH Ur Specific Keyes Urine Protein Urine Glucose (UA) Urine Ketones Urine Blood Urine Nitrite Urine Bilirubin Urine Urobilinogen Ur Leukocyte Esterase Urine WBC (Auto) Urine RBC (Auto) Ur Epithelial Cells Urine Bacteria Urine Mucus Active Medications Generic Name Dose Route Start Last Admin Trade Name Freq PRN Reason Stop Dose Admin Acetaminophen 650 mg 03/11/18 18:10 03/11/18 22:07 Tylenol - PO 650 mg Q4H PRN Administration PAIN Ascorbic Acid 500 mg 03/12/18 10:00 03/12/18 09:42 Vitamin C - PO 500 mg DAILY ENEDELIA Administration Atorvastatin Calcium 10 mg 03/11/18 22:00 03/11/18 22:07 Lipitor - PO 10 mg HS ENEDELIA Administration Cholecalciferol 1,000 unit 03/12/18 10:00 03/12/18 09:43 Vitamin D3 - PO 1,000 unit DAILY ENEDELIA Administration Enoxaparin Sodium 40 mg 03/12/18 10:00 03/12/18 09:41 Lovenox - SQ 40 mg DAILY ENEDELIA Administration Furosemide 40 mg 03/12/18 10:00 03/12/18 09:42 Lasix - PO 40 mg DAILY ENEDELIA Administration Vancomycin HCl 1,000 mg/ 250 mls @ 166.667 mls/hr 03/12/18 12:30 Dextrose IVPB Q12H ENEDELIA Protocol Piperacillin Sod/Tazobactam 50 mls @ 100 mls/hr 03/12/18 12:30 Sod 3.375 gm/ Dextrose IVPB Q8H-IV ENEDELIA Protocol Lactobacillus Acidophilus 1 tab 03/11/18 18:15 03/12/18 09:42 Bacid - PO 1 tab DAILY ENEDELIA Administration Losartan Potassium 100 mg 03/12/18 10:00 03/12/18 09:42 Cozaar - PO 100 mg DAILY ENEDELIA Administration Multivit/Ca Carb/B Cmplx/FA/Prenat 1 tablet 03/12/18 10:00 03/12/18 09:42 Nephro-Jenn - PO 1 tablet DAILY ENEDELIA Administration Nifedipine 90 mg 03/11/18 22:00 03/11/18 22:06 Procardia Xl - PO 90 mg HS ENEDELIA Administration Ondansetron HCl 4 mg 03/11/18 18:10 Zofran Injection IVPUSH Q6H PRN NAUSEA Pantoprazole Sodium 40 mg 03/12/18 10:00 03/12/18 09:42 Protonix - PO 40 mg DAILY ENEDELIA Administration Potassium Chloride 20 meq 03/12/18 10:00 03/12/18 09:42 K-Dur - PO 20 meq DAILY ENEDELIA Administration ASSESSMENT/PLAN: Problem List - Problems (1) Cellulitis and abscess of right lower extremity Assessment/Plan: CT reviewed, no signs of gas * Vanco and Zosyn ; ID on board * Wound culture shows presumptive Pseudomonas * Ortho consult appreciated * Podiatry consult pending. * Repeat CBC in AM (2) HTN (hypertension) Assessment/Plan: * Furosemide (Lasix -) 40 mg PO DAILY * Losartan Potassium (Cozaar -) 100 mg PO DAILY * Nifedipine (Procardia Xl -) 90 mg PO HS (3) HLD (hyperlipidemia) Assessment/Plan: continue statin (4) Ulcer of right foot with fat layer exposed (5) DVT prophylaxis Assessment/Plan: Heparin SQ 5000 units TID. Visit type - Emergency Visit Emergency Visit: Yes ED Registration Date: 03/11/18 Care time: The patient presented to the Emergency Department on the above date and was hospitalized for further evaluation of their emergent condition. - New Patient This patient is new to me today: Yes Date on this admission: 03/12/18 - Critical Care Critical Care patient: No - Discharge Referral Referred to [facility] Med P.C.: No
--- NOTE | 2018-03-12 12:21 | PN ---
Progress Note (short form) - Note Progress Note: ID Consult dictated Cellulitis R LE Non-healing foot ulcer S/P R TKR Await c/s Vancomycin/ zosyn Podiatry evaluation
--- NOTE | 2018-03-12 12:48 | EKG ---
Test Reason : Blood Pressure : / mmHG Vent. Rate : 093 BPM Atrial Rate : 093 BPM P-R Int : 136 ms QRS Dur : 082 ms QT Int : 362 ms P-R-T Axes : 064 005 059 degrees QTc Int : 450 ms NORMAL SINUS RHYTHM INFERIOR INFARCT (CITED ON OR BEFORE 26-DEC-2012) ABNORMAL ECG WHEN COMPARED WITH ECG OF 26-DEC-2012 13:32, NONSPECIFIC T WAVE ABNORMALITY, IMPROVED IN LATERAL LEADS Confirmed by JOSE PICHARDO MD ([id number]) on 03/12/2018 12:48:28 PM Referred By: Confirmed By:JOSE PICHARDO MD
[2018-03-12] MEDS ORDERED: VANCOMYCIN 1,000 MG in DEXTROSE 5%-WATER - 250 ML IVPB SCH (14:00)
--- NOTE | 2018-03-12 14:21 | PN ---
Teaching Attending Note Name of Resident: Jimy Sharif ATTENDING PHYSICIAN STATEMENT I saw and evaluated the patient. I reviewed the resident's note and discussed the case with the resident. I agree with the resident's findings and plan as documented. SUBJECTIVE: Ms Patel complains of RLE pain but improved from yesterday. Remains red. No cp, sob, n/v. OBJECTIVE: Gen: nad Pulm: ctab w/o w/r/r CV: rrr w/o m/r/g Abd: +bs, s/nt/nd Ext: RLE with significant erythema, 1+ edema. R foot with unchanged ulceration ASSESSMENT AND PLAN: -CT reviewed, no signs of gas -appreciate ID assistance -continue vancomycin and zosyn -wound culture growing presumptive pseudomonas -ortho following -podiatry consulted -continue current management Problem List - Problems (1) Cellulitis and abscess of right lower extremity Code(s): L03.115 - CELLULITIS OF RIGHT LOWER LIMB; L02.415 - CUTANEOUS ABSCESS OF RIGHT LOWER LIMB (2) HTN (hypertension) Code(s): I10 - ESSENTIAL (PRIMARY) HYPERTENSION (3) HLD (hyperlipidemia) Code(s): E78.5 - HYPERLIPIDEMIA, UNSPECIFIED (4) Ulcer of right foot with fat layer exposed Code(s): L97.512 - NON-PRS CHRONIC ULCER OTH PRT RIGHT FOOT W FAT LAYER EXPOSED
[2018-03-12] MEDS: VANCOMYCIN 1 GRAM (PRE-DOCKED) 1,000 MG/250 ML BAG IVPB SCH (15:07)
--- NOTE | 2018-03-12 15:55 | CONS ---
INFECTIOUS DISEASE CONSULTATION DATE OF CONSULTATION: 03/12/2018 Patient is a 68-year-old female evaluated for cellulitis of the right lower extremity. She reports feeling well until approximately 2-3 days ago when she began to develop generalized weakness, fatigue, fevers, and chills. One day prior to admission, she developed worsening erythema, warmth, and swelling of the right lower extremity. She presented to the emergency room where she was found to have cellulitis of the right lower extremity. A Doppler exam was performed and was negative for DVT. CAT scan showed no evidence of abscess. Cultures were obtained. She was empirically treated with vancomycin and Zosyn. Patient was recently treated for an infected right foot ulcer. She has an ulceration between the right 1st and 2nd toes. Wound cultures in the past were positive for quinolone-sensitive pseudomonas. She was treated with Levaquin. In the interim, she has undergone a right total knee replacement. At the present time, she is awake and alert. She is supine in bed. She has no complaints of right leg pain. PAST MEDICAL HISTORY: Positive for hypertension and hyperlipidemia. PAST SURGICAL HISTORY: Status post right total knee replacement in December 2017. ALLERGIES: CLINDAMYCIN and ERYTHROMYCIN. Patient describes gastrointestinal upset with these agents. MEDICATIONS: Vitamin C, Lipitor, Lasix, Procardia, Avapro, Protonix, Boniva. SOCIAL HISTORY: Patient resides in the community. She is a nonsmoker, nondrinker. Recent hospitalization for knee replacement. SYSTEMS REVIEW: Neurologic: No loss of consciousness, seizure activity, focal weakness. Cardiac: Negative chest pain or palpitations. Respiratory: Negative cough or sputum production. Gastrointestinal: Negative vomiting or diarrhea. Genitourinary: Negative for urinary tract infection. LABORATORY DATA: White count on admission 14,000, presently 8.3; hematocrit 31.9. Creatinine 0.7. Urinalysis: White cells 5. Blood culture is pending. Wound culture growing presumed Pseudomonas aeruginosa. PHYSICAL EXAMINATION: General: Patient is awake and alert, not acutely toxic appearing. Vital Signs: Temperature 98.8; blood pressure 107/57; pulse 83, regular; respirations 18 per minute. HEENT: Sclerae are anicteric. Heart: Sounds S1, S2. Lungs: Clear. Abdomen: Soft. No tenderness elicited. No mass, rebound, or rigidity. Extremities: There is confluent erythema involving the right lower extremity from the area of the ankle to the mid-tibia. It is warm to touch, well demarcated. It does not extend to the surgical margin of the right total knee replacement. There is an ulceration present between the right 1st and 2nd toes. There is no purulent drainage noted. The right knee has a healed surgical scar. No erythema, warmth, or swelling. IMPRESSION: 1. Cellulitis of the right lower extremity. 2. Nonhealing right foot ulcer. 3. Status post right total knee replacement. Await culture results. Empiric antibiotic coverage with vancomycin and Zosyn. Podiatry evaluation. Suspect that nonhealing ulcer served as the portal of entry for bacteria causing cellulitis of the right lower extremity. It does not appear to extend to the right knee. Continue local wound care. Would refer to the wound care center post discharge for wound healing. Thank you for the kind referral. MAIKEL MICHAEL M.D. [id number]
[2018-03-12] MEDS: NIFEdipine E.R. 90 MG TABLET (FP) PO SCH (22:06)
[2018-03-12] MEDS: ATORVASTATIN CA 10 MG TABLET (FP) PO SCH (22:06)
[2018-03-13] MEDS: PIPERACILLIN/TAZOB 3.375 GM 3.375 GM in DEXTROSE 5%-WATER - 50 ML IVPB SCH ×3 (01:39→18:15)
[2018-03-13] MEDS: VANCOMYCIN 1 GRAM (PRE-DOCKED) 1,000 MG/250 ML BAG IVPB SCH ×2 (02:08→13:08)
[2018-03-13] MEDS: ACETAMINOPHEN 325 MG TABLET (FP) PO PRN (05:33)
[2018-03-13 07:09] LABS: BASO % 1.3 % (0-2.0); EOS % 2.5 % (0-4.5); HEMATOCRIT 32.3 % (32.4-45.2); HEMOGLOBIN 10.6 GM/dL (10.7-15.3); LYMPH % 24.5 % (8-40); MCH 28.6 pg (25.7-33.7); MCHC 32.8 g/dl (32.0-36.0); MEAN PLT VOLUME 7.2 fl (7.5-11.1); NEUT % 63.7 % (42.8-82.8); PLATELET COUNT 271 K/MM3 (134-434); RBC 3.71 M/mm3 (3.60-5.2); WHITE BLOOD COUNT 7.8 K/mm3 (4.0-10.0)
[2018-03-13 07:28] LABS: ALBUMIN 2.7 g/dl (3.4-5.0); ALK PHOS 73 U/L (45-117); ANION GAP 8 MMOL/L (8-16); BILIRUBIN,TOTAL 0.4 mg/dL (0.2-1); BLOOD UREA NITROGEN 14 mg/dL (7-18); CALCIUM 8.1 mg/dL (8.5-10.1); CHLORIDE 110 mmol/L (98-107); CO2 23 mmol/L (21-32); CREATININE 0.7 mg/dL (0.55-1.3); GLUCOSE,RANDOM 91 mg/dL (74-106); POTASSIUM 3.4 mmol/L (3.5-5.1); SGOT/AST 20 U/L (15-37); SGPT/ALT 26 U/L (13-61); SODIUM 142 mmol/L (136-145)
[2018-03-13] MEDS ORDERED: DEXTROSE 5%-WATER - 50 ML IVPB ONE ×2 (07:59→17:10)
[2018-03-13] MEDS ORDERED: PIPERACILLIN/TAZOBACTAM 3.375 GM VIAL IVPB ONE ×2 (07:59→17:10)
[2018-03-13] MEDS: ENOXAPARIN NA (PORCINE) 40 MG/0.4 ML DISP.SYRIN SQ SCH (09:10)
[2018-03-13] MEDS: CHOLECALCIFEROL (VITAMIN D3) 1,000 UNIT TABLET (FP) PO SCH (09:10)
[2018-03-13] MEDS: LOSARTAN POTASSIUM 50 MG TABLET (FP) PO SCH (09:10)
[2018-03-13] MEDS: FUROSEMIDE 40 MG TABLET (FP) PO SCH (09:10)
[2018-03-13] MEDS: POTASSIUM CHLORIDE TABS 20 MEQ TABLET.ER (FP) PO SCH (09:10)
[2018-03-13] MEDS: PANTOPRAZOLE 40 MG TABLET (FP) PO SCH (09:10)
[2018-03-13] MEDS: ASCORBIC ACID 500 MG TABLET (FP) PO SCH (09:10)
[2018-03-13] MEDS: VITAMIN B COMP W-C 1 EA TABLET PO SCH (09:10)
[2018-03-13] MEDS: LACTOBACILLUS ACIDOPHILUS 1 TABLET PO SCH (09:10)
--- NOTE | 2018-03-13 10:20 | PN ---
Progress Note (short form) - Note Progress Note: Ortho Pt seen and examined s/p right LE cellulitis, right tkr- improving Selected Entries 03/13/18 05:49 Temperature 99.1 F Pulse Rate 83 Respiratory 20 Rate Blood Pressure 113/56 L Laboratory Tests 03/13/18 06:15 WBC 7.8 Hgb 10.6 L Hct 32.3 L Plt Count 271 decr erythema, incr rom- right knee doing well nvi a/p Abx as per ID rom exercises d/w Dr. Parker
--- NOTE | 2018-03-13 12:35 | PN ---
Progress Note, Physician History of Present Illness: Awake, alert No c/o leg pain No fever/chills Wound c/s Pseudomonas sp - Current Medication List Current Medications: Active Medications Acetaminophen (Tylenol -) 650 mg PO Q4H PRN PRN Reason: PAIN Last Admin: 03/13/18 05:33 Dose: 650 mg Ascorbic Acid (Vitamin C -) 500 mg PO DAILY [facility] Last Admin: 03/13/18 09:10 Dose: 500 mg Atorvastatin Calcium (Lipitor -) 10 mg PO HS [facility] Last Admin: 03/12/18 22:06 Dose: 10 mg Cholecalciferol (Vitamin D3 -) 1,000 unit PO DAILY [facility] Last Admin: 03/13/18 09:10 Dose: 1,000 unit Enoxaparin Sodium (Lovenox -) 40 mg SQ DAILY [facility] Last Admin: 03/13/18 09:10 Dose: 40 mg Furosemide (Lasix -) 40 mg PO DAILY [facility] Last Admin: 03/13/18 09:10 Dose: 40 mg Vancomycin HCl (Vancomycin (Pre-Docked)) 1,000 mg in 250 mls @ 166.667 mls/hr IVPB Q12H ENEDELIA; Protocol Last Admin: 03/13/18 02:08 Dose: 166.667 mls/hr Piperacillin Sod/Tazobactam (Sod 3.375 gm/ Dextrose) 50 mls @ 100 mls/hr IVPB Q8H-IV ENEDELIA; Protocol Last Admin: 03/13/18 09:09 Dose: 100 mls/hr Lactobacillus Acidophilus (Bacid -) 1 tab PO DAILY [facility] Last Admin: 03/13/18 09:10 Dose: 1 tab Losartan Potassium (Cozaar -) 100 mg PO DAILY [facility] Last Admin: 03/13/18 09:10 Dose: 100 mg Multivit/Ca Carb/B Cmplx/FA/Prenat (Nephro-Jenn -) 1 tablet PO DAILY [facility] Last Admin: 03/13/18 09:10 Dose: 1 tablet Nifedipine (Procardia Xl -) 90 mg PO HS [facility] Last Admin: 03/12/18 22:06 Dose: 90 mg Ondansetron HCl (Zofran Injection) 4 mg IVPUSH Q6H PRN PRN Reason: NAUSEA Pantoprazole Sodium (Protonix -) 40 mg PO DAILY [facility] Last Admin: 12/14/18 09:10 Dose: 40 mg Potassium Chloride (K-Dur -) 20 meq PO DAILY ENEDELIA Last Admin: 03/13/18 09:10 Dose: 20 meq - Objective Vital Signs: Vital Signs Temperature 98.3 F 03/13/18 11:17 Pulse Rate 80 03/13/18 11:17 Respiratory Rate 20 03/13/18 11:17 Blood Pressure 136/60 03/13/18 11:17 O2 Sat by Pulse Oximetry (%) 94 L 03/13/18 09:00 Constitutional: Yes: No Distress Eyes: Yes: Conjunctiva Clear Cardiovascular: Yes: Regular Rate and Rhythm, S1, S2 Respiratory: Yes: CTA Bilaterally Gastrointestinal: Yes: Normal Bowel Sounds, Soft, Tenderness Musculoskeletal: Yes: Other Extremities: Yes: Other (decreased erythema/ warmth R LE Non-healing ulcer R foot No drainage) Labs: CBC, BMP 03/13/18 06:15 03/13/18 06:15 INR, PTT INR 1.10 (0.83-1.09) H 03/11/18 15:22 Assessment/Plan Cellulitis R LE Non-healing ulcer R foot Await c/s Continue zosyn/ vancomycin Podiatry evaluation Local wound care
[2018-03-13] MEDS ORDERED: PT OWN MED DRAWER 7, Y5N ONE ×2 (13:42→18:17)
--- NOTE | 2018-03-13 16:57 | PN ---
Physical Exam: SUBJECTIVE: Patient seen and examined at bedside. No overnight events. No new complaints. Leg pain persist but improved. Denies CP,STONE, SOB, palpitations, abdominal pain, nausea and vomiting. OBJECTIVE: Vital Signs Period Temp Pulse Resp BP Sys/Tomlinson Pulse Ox Last 24 Hr 98.1 F-98.8 F 70-93 16-18 103-136/51-75 96-100 GENERAL:AAOx3, NAD HEAD: NCAT EYES: PERRL, EOMI, sclera anicteric, conjunctiva clear. No ptosis. ENT: moist mucous membranes. NECK: supple, No jvd LUNGS:CTAB , no wheezes, no crackles, no accessory muscle use. HEART: RRR, S1, S2 without murmur, rub or gallop. ABDOMEN: Soft, nontender, nondistended, normoactive bowel sounds, no guarding EXTREMITIES: 2+ pulses, warm, well-perfused, no edema. 1x1 cm ulcer on medial aspect of 2nd right toe. NEUROLOGICAL: Cranial nerves II through XII grossly intact. Normal speech, gait not observed. PSYCH: Normal mood, normal affect. SKIN: erythema and warmth of RLE from ankle to mid tibial region. Laboratory Results - last 24 hr 03/13/18 03/13/18 06:15 06:15 WBC 7.8 RBC 3.71 Hgb 10.6 L Hct 32.3 L MCV 87.0 MCH 28.6 MCHC 32.8 RDW 15.0 Plt Count 271 MPV 7.2 L Absolute Neuts (auto) 5.0 Neutrophils % 63.7 Lymphocytes % 24.5 D Monocytes % 8.0 Eosinophils % 2.5 Basophils % 1.3 Nucleated RBC % 0 Sodium 142 Potassium 3.4 L Chloride 110 H Carbon Dioxide 23 Anion Gap 8 BUN 14 Creatinine 0.7 Creat Clearance w eGFR > 60 Random Glucose 91 Calcium 8.1 L Total Bilirubin 0.4 AST 20 ALT 26 Alkaline Phosphatase 73 Total Protein 6.0 L Albumin 2.7 L Active Medications Generic Name Dose Route Start Last Admin Trade Name Freq PRN Reason Stop Dose Admin Acetaminophen 650 mg 03/11/18 18:10 03/13/18 05:33 Tylenol - PO 650 mg Q4H PRN Administration PAIN Ascorbic Acid 500 mg 03/12/18 10:00 03/13/18 09:10 Vitamin C - PO 500 mg DAILY ENEDELIA Administration Atorvastatin Calcium 10 mg 03/11/18 22:00 03/12/18 22:06 Lipitor - PO 10 mg HS ENEDELIA Administration Cholecalciferol 1,000 unit 03/12/18 10:00 03/13/18 09:10 Vitamin D3 - PO 1,000 unit DAILY ENEDELIA Administration Enoxaparin Sodium 40 mg 03/12/18 10:00 03/13/18 09:10 Lovenox - SQ 40 mg DAILY ENEDELIA Administration Furosemide 40 mg 03/12/18 10:00 03/13/18 09:10 Lasix - PO 40 mg DAILY ENEDELIA Administration Vancomycin HCl 1,000 mg in 250 mls @ 166.667 mls/hr 03/12/18 14:00 03/13/18 13:08 Vancomycin (Pre-Docked) IVPB 166.667 mls/hr Q12H ENEDELIA Administration Protocol Piperacillin Sod/Tazobactam 50 mls @ 100 mls/hr 03/12/18 13:15 03/13/18 09:09 Sod 3.375 gm/ Dextrose IVPB 100 mls/hr Q8H-IV ENEDELIA Administration Protocol Lactobacillus Acidophilus 1 tab 03/11/18 18:15 03/13/18 09:10 Bacid - PO 1 tab DAILY ENEDELIA Administration Losartan Potassium 100 mg 03/12/18 10:00 03/13/18 09:10 Cozaar - PO 100 mg DAILY ENEDELIA Administration Multivit/Ca Carb/B Cmplx/FA/Prenat 1 tablet 03/12/18 10:00 03/13/18 09:10 Nephro-Jenn - PO 1 tablet DAILY EN[facility]ELIA Administration Nifedipine 90 mg 03/11/18 22:00 03/12/18 22:06 Procardia Xl - PO 90 mg HS ENEDELIA Administration Ondansetron HCl 4 mg 03/11/18 18:10 Zofran Injection IVPUSH Q6H PRN NAUSEA Pantoprazole Sodium 40 mg 03/12/18 10:00 03/13/18 09:10 Protonix - PO 40 mg DAILY ENEDELIA Administration Potassium Chloride 20 meq 03/12/18 10:00 03/13/18 09:10 K-Dur - PO 20 meq DAILY ENEDELIA Administration ASSESSMENT/PLAN: Problem List - Problems (1) Cellulitis and abscess of right lower extremity Assessment/Plan: CT reviewed, no signs of gas * Vanco and Anasyn ; ID on board * Wound culture shows Pseudomonas * Ortho consult appreciated * Podiatry consult * Repeat CBC in AM (2) HTN (hypertension) Assessment/Plan: * Furosemide (Lasix -) 40 mg PO DAILY * Losartan Potassium (Cozaar -) 100 mg PO DAILY * Nifedipine (Procardia Xl -) 90 mg PO HS (3) HLD (hyperlipidemia) Assessment/Plan: continue statin (4) Ulcer of right foot with fat layer exposed (5) DVT prophylaxis Assessment/Plan: Heparin SQ 5000 units TID. Visit type - Emergency Visit Emergency Visit: Yes ED Registration Date: 03/11/18 Care time: The patient presented to the Emergency Department on the above date and was hospitalized for further evaluation of their emergent condition. - New Patient This patient is new to me today: No - Critical Care Critical Care patient: No
--- NOTE | 2018-03-13 17:03 | PN ---
Teaching Attending Note Name of Resident: Jimy Sharif ATTENDING PHYSICIAN STATEMENT I saw and evaluated the patient. I reviewed the resident's note and discussed the case with the resident. I agree with the resident's findings and plan as documented. SUBJECTIVE: Ms Patel says she is feeling better. Still with pain in her RLE but improving. Also notes improvement of erythema. No cp, sob, n/v. OBJECTIVE: Gen: nad Pulm: ctab w/o w/r/r CV: rrr w/o m/r/g Abd: +bs, s/nt/nd Ext: RLE erythema, significant but improving. Minimal edema ASSESSMENT AND PLAN: -appreciate ID assistance -continue vancomycin and zosyn -wound culture growing pseudomonas -podiatry consulted -continue current management Problem List - Problems (1) Cellulitis and abscess of right lower extremity Code(s): L03.115 - CELLULITIS OF RIGHT LOWER LIMB; L02.415 - CUTANEOUS ABSCESS OF RIGHT LOWER LIMB (2) HTN (hypertension) Code(s): I10 - ESSENTIAL (PRIMARY) HYPERTENSION Qualifiers: Hypertension type: essential hypertension Qualified Code(s): I10 - Essential (primary) hypertension (3) HLD (hyperlipidemia) Code(s): E78.5 - HYPERLIPIDEMIA, UNSPECIFIED Qualifiers: Hyperlipidemia type: pure hypercholesterolemia Qualified Code(s): E78.00 - Pure hypercholesterolemia, unspecified; E78.0 - Pure hypercholesterolemia (4) Ulcer of right foot with fat layer exposed Code(s): L97.512 - NON-PRS CHRONIC ULCER OTH PRT RIGHT FOOT W FAT LAYER EXPOSED
[2018-03-13] MEDS: NIFEdipine E.R. 90 MG TABLET (FP) PO SCH (21:27)
[2018-03-13] MEDS: ATORVASTATIN CA 10 MG TABLET (FP) PO SCH (21:27)
[2018-03-14] MEDS ORDERED: PIPERACILLIN/TAZOBACTAM 3.375 GM VIAL IVPB ONE ×3 (02:21→17:24)
[2018-03-14] MEDS ORDERED: DEXTROSE 5%-WATER - 50 ML IVPB ONE ×3 (02:21→17:24)
[2018-03-14] MEDS: PIPERACILLIN/TAZOB 3.375 GM 3.375 GM in DEXTROSE 5%-WATER - 50 ML IVPB SCH ×3 (02:26→17:46)
[2018-03-14] MEDS: VANCOMYCIN 1 GRAM (PRE-DOCKED) 1,000 MG/250 ML BAG IVPB SCH ×2 (03:05→14:48)
[2018-03-14 07:09] LABS: BASO % 1.3 % (0-2.0); HEMATOCRIT 29.8 % (32.4-45.2); HEMOGLOBIN 10.4 GM/dL (10.7-15.3); LYMPH % 25.3 % (8-40); MCH 29.8 pg (25.7-33.7); MCHC 34.8 g/dl (32.0-36.0); MEAN CELL VOLUME 85.8 fl (80-96); MEAN PLT VOLUME 7.6 fl (7.5-11.1); MONO % 8.9 % (3.8-10.2); NEUT % 59.5 % (42.8-82.8); PLATELET COUNT 294 K/MM3 (134-434); RBC 3.47 M/mm3 (3.60-5.2); RDW 14.8 % (11.6-15.6); WHITE BLOOD COUNT 7.3 K/mm3 (4.0-10.0)
[2018-03-14 08:03] LABS: ALBUMIN 2.6 g/dl (3.4-5.0); ALK PHOS 71 U/L (45-117); BILIRUBIN,TOTAL 0.5 mg/dL (0.2-1); BLOOD UREA NITROGEN 10 mg/dL (7-18); CALCIUM 8.3 mg/dL (8.5-10.1); CO2 23 mmol/L (21-32); CREATININE 0.6 mg/dL (0.55-1.3); GLUCOSE,RANDOM 81 mg/dL (74-106); SGOT/AST 16 U/L (15-37); SGPT/ALT 23 U/L (13-61); TOT PROT 5.9 g/dl (6.4-8.2)
--- NOTE | 2018-03-14 08:21 | PN ---
Progress Note, Physician Chief Complaint: Ms Patel says she has pain in her R ankle but otherwise is doing well. Denies cp, sob, n/v. - Current Medication List Current Medications: Active Medications Acetaminophen (Tylenol -) 650 mg PO Q4H PRN PRN Reason: PAIN Last Admin: 03/13/18 05:33 Dose: 650 mg Ascorbic Acid (Vitamin C -) 500 mg PO DAILY [facility] Last Admin: 03/13/18 09:10 Dose: 500 mg Atorvastatin Calcium (Lipitor -) 10 mg PO HS [facility] Last Admin: 03/13/18 21:27 Dose: 10 mg Cholecalciferol (Vitamin D3 -) 1,000 unit PO DAILY [facility] Last Admin: 03/13/18 09:10 Dose: 1,000 unit Enoxaparin Sodium (Lovenox -) 40 mg SQ DAILY [facility] Last Admin: 03/13/18 09:10 Dose: 40 mg Furosemide (Lasix -) 40 mg PO DAILY [facility] Last Admin: 03/13/18 09:10 Dose: 40 mg Vancomycin HCl (Vancomycin (Pre-Docked)) 1,000 mg in 250 mls @ 166.667 mls/hr IVPB Q12H ENEDELIA; Protocol Last Admin: 03/14/18 03:05 Dose: 166.667 mls/hr Piperacillin Sod/Tazobactam (Sod 3.375 gm/ Dextrose) 50 mls @ 100 mls/hr IVPB Q8H-IV ENEDELIA; Protocol Last Admin: 03/14/18 02:26 Dose: 100 mls/hr Lactobacillus Acidophilus (Bacid -) 1 tab PO DAILY [facility] Last Admin: 03/13/18 09:10 Dose: 1 tab Losartan Potassium (Cozaar -) 100 mg PO DAILY [facility] Last Admin: 03/13/18 09:10 Dose: 100 mg Multivit/Ca Carb/B Cmplx/FA/Prenat (Nephro-Jenn -) 1 tablet PO DAILY [facility] Last Admin: 03/13/18 09:10 Dose: 1 tablet Nifedipine (Procardia Xl -) 90 mg PO HS [facility] Last Admin: 03/13/18 21:27 Dose: 90 mg Ondansetron HCl (Zofran Injection) 4 mg IVPUSH Q6H PRN PRN Reason: NAUSEA Pantoprazole Sodium (Protonix -) 40 mg PO DAILY [facility] Last Admin: 03/13/18 09:10 Dose: 40 mg Potassium Chloride (K-Dur -) 20 meq PO DAILY [facility] Last Admin: 03/13/18 09:10 Dose: 20 meq - Objective Vital Signs: Vital Signs Temperature 36.7 C 03/14/18 06:00 Pulse Rate 79 03/14/18 06:00 Respiratory Rate 18 03/14/18 06:00 Blood Pressure 113/64 03/14/18 06:00 O2 Sat by Pulse Oximetry (%) 94 L 03/13/18 21:00 Constitutional: Yes: No Distress, Calm, Obese Cardiovascular: Yes: Regular Rate and Rhythm. No: Gallop, Murmur, Rub Respiratory: Yes: Regular, CTA Bilaterally. No: Rales, Rhonchi, Wheezes Gastrointestinal: Yes: Normal Bowel Sounds, Soft. No: Distention, Tenderness Extremities: Yes: Erythema (much improved since admission) Edema: Yes Edema: RLE: Trace Labs: CBC, BMP 03/14/18 06:00 03/14/18 06:00 INR, PTT INR 1.10 (0.83-1.09) H 03/11/18 15:22 Problem List - Problems (1) Cellulitis and abscess of right lower extremity Code(s): L03.115 - CELLULITIS OF RIGHT LOWER LIMB; L02.415 - CUTANEOUS ABSCESS OF RIGHT LOWER LIMB (2) HTN (hypertension) Code(s): I10 - ESSENTIAL (PRIMARY) HYPERTENSION Qualifiers: Hypertension type: essential hypertension Qualified Code(s): I10 - Essential (primary) hypertension (3) HLD (hyperlipidemia) Code(s): E78.5 - HYPERLIPIDEMIA, UNSPECIFIED Qualifiers: Hyperlipidemia type: pure hypercholesterolemia Qualified Code(s): E78.00 - Pure hypercholesterolemia, unspecified; E78.0 - Pure hypercholesterolemia (4) Ulcer of right foot with fat layer exposed Code(s): L97.512 - NON-PRS CHRONIC ULCER OTH PRT RIGHT FOOT W FAT LAYER EXPOSED Assessment/Plan (1) Cellulitis and abscess of right lower extremity Assessment/Plan: -appreciate ID assistance -continue vancomycin and zosyn -much improved today Code(s): L03.115 - CELLULITIS OF RIGHT LOWER LIMB; L02.415 - CUTANEOUS ABSCESS OF RIGHT LOWER LIMB (2) HTN (hypertension) Assessment/Plan: -continue lasix, nifedipine, and avapro Code(s): I10 - ESSENTIAL (PRIMARY) HYPERTENSION (3) HLD (hyperlipidemia) Assessment/Plan: -continue lipitor Code(s): E78.5 - HYPERLIPIDEMIA, UNSPECIFIED (4) Ulcer of right foot with fat layer exposed Assessment/Plan: -growing pseudomonas -continue zosyn -Dr Gregorio consulted, if does not come to hospital then consult another die cleaner for evaluation Code(s): L97.512 - NON-PRS CHRONIC ULCER OTH PRT RIGHT FOOT W FAT LAYER EXPOSED
[2018-03-14 08:23] LABS: POTASSIUM 3.7 mmol/L (3.5-5.1); SODIUM 141 mmol/L (136-145)
[2018-03-14 08:24] LABS: ANION GAP 9 MMOL/L (8-16); CHLORIDE 109 mmol/L (98-107)
[2018-03-14] MEDS ORDERED: PT OWN MED DRAWER 7, Y5N ONE (10:30)
--- NOTE | 2018-03-14 10:38 | PN ---
Progress Note (short form) - Note Progress Note: reports improvement in erythema within the lines drawn on her leg Vital Signs Period Temp Pulse Resp BP Sys/Tomlinson Pulse Ox Last 24 Hr 97.9 F-98.4 F 79-92 18-20 108-139/60-71 94 cor-rrr lungs clear abd soft,nt ext erythema below lines on leg well healed TKR scar dry ulcer between her toes right foot CBC, BMP 03/14/18 06:00 03/14/18 06:00 Microbiology 03/11/18 15:22 Blood - Peripheral Venous Blood Culture - Preliminary NO GROWTH OBTAINED AFTER 48 HOURS, INCUBATION TO CONTINUE FOR 3 DAYS. 03/11/18 14:15 Blood - Peripheral Venous Blood Culture - Preliminary NO GROWTH OBTAINED AFTER 48 HOURS, INCUBATION TO CONTINUE FOR 3 DAYS. 03/11/18 15:22 Urine - Urine Clean Catch Urine Culture - Final Contaminated: Please Repeat 03/11/18 15:00 Toe - Right Second Gram Stain - Final 03/11/18 15:00 Toe - Right Second Wound Culture - Final Pseudomonas Aeruginosa a/p celllitis improved recent TKR continue vanco/zosyn check vancomycin trough (ordered)
[2018-03-14] MEDS: LACTOBACILLUS ACIDOPHILUS 1 TABLET PO SCH (10:57)
[2018-03-14] MEDS: LOSARTAN POTASSIUM 50 MG TABLET (FP) PO SCH (10:58)
[2018-03-14] MEDS: POTASSIUM CHLORIDE TABS 20 MEQ TABLET.ER (FP) PO SCH (10:58)
[2018-03-14] MEDS: ENOXAPARIN NA (PORCINE) 40 MG/0.4 ML DISP.SYRIN SQ SCH (11:00)
[2018-03-14] MEDS: FUROSEMIDE 40 MG TABLET (FP) PO SCH (11:00)
[2018-03-14] MEDS: CHOLECALCIFEROL (VITAMIN D3) 1,000 UNIT TABLET (FP) PO SCH (11:01)
[2018-03-14] MEDS: ASCORBIC ACID 500 MG TABLET (FP) PO SCH (11:01)
[2018-03-14] MEDS: VITAMIN B COMP W-C 1 EA TABLET PO SCH (11:01)
[2018-03-14] MEDS: PANTOPRAZOLE 40 MG TABLET (FP) PO SCH (11:01)
--- NOTE | 2018-03-14 16:23 | CONS ---
DATE OF CONSULTATION: 03/14/2018 HISTORY OF PRESENT ILLNESS: The patient was seen at bedside today. She had been admitted for cellulitis of the right leg, recently had knee surgery done on the right leg, and also presents a digital ulcer on the right hallux, and resolving ulcer on the right 2nd toe. She had been under my care prior to her knee surgery for the ulceration, which she had been on oral antibiotics after a consultation with the infectious disease doctor for pseudomonas. PAST MEDICAL HISTORY: Reviewed in the chart and it is unchanged. EXAMINATION: Extremities: The patient presents cellulitis above the ankle and below the knee on the right leg. Patient relates that she had an allergic reaction to the bandaging on the knee after knee surgery approximately 6 weeks ago. She now presents with resolving cellulitis, after antibiotic treatments IV since , a drying ulceration of the right hallux on the lateral side. Vascular: DP bilateral, PT bilateral +2 out of 4. There is some edema of the right ankle. Neurological: Intact sensory bilateral. Musculoskeletal: Negative. ASSESSMENT: The patient has a pseudomonas ulceration of the right hallux and a resolving ulceration of the right 2nd toe. PLAN: She is presently on IV antibiotics for the pseudomonas and the cellulitis of the right leg. SUGGESTIONS: I suggest upon discharge a 1% acetic acid wash of the digit twice a day, followed by topical gentamicin cream twice a day, and oral or intravenous antibiotics as per Infectious Disease. DADA JACOB/[id number]
[2018-03-14] MEDS: ATORVASTATIN CA 10 MG TABLET (FP) PO SCH (21:14)
[2018-03-14] MEDS: NIFEdipine E.R. 90 MG TABLET (FP) PO SCH (21:14)
[2018-03-14] MEDS: ACETAMINOPHEN 325 MG TABLET (FP) PO PRN (21:15)
[2018-03-15] MEDS ORDERED: PIPERACILLIN/TAZOBACTAM 3.375 GM VIAL IVPB ONE ×3 (00:01→16:40)
[2018-03-15] MEDS ORDERED: DEXTROSE 5%-WATER - 50 ML IVPB ONE ×3 (00:01→16:40)
[2018-03-15] MEDS: PIPERACILLIN/TAZOB 3.375 GM 3.375 GM in DEXTROSE 5%-WATER - 50 ML IVPB SCH ×3 (01:28→17:20)
[2018-03-15] MEDS: VANCOMYCIN 1 GRAM (PRE-DOCKED) 1,000 MG/250 ML BAG IVPB SCH ×2 (03:00→13:59)
[2018-03-15] MEDS: ACETAMINOPHEN 325 MG TABLET (FP) PO PRN ×3 (06:41→22:09)
[2018-03-15 07:35] LABS: BASO % 1.3 % (0-2.0); EOS % 3.6 % (0-4.5); HEMATOCRIT 34.6 % (32.4-45.2); HEMOGLOBIN 11.2 GM/dL (10.7-15.3); LYMPH % 22.8 % (8-40); MCH 28.2 pg (25.7-33.7); MCHC 32.5 g/dl (32.0-36.0); MEAN CELL VOLUME 86.9 fl (80-96); MEAN PLT VOLUME 7.3 fl (7.5-11.1); NEUT % 64.3 % (42.8-82.8); PLATELET COUNT 312 K/MM3 (134-434); RBC 3.98 M/mm3 (3.60-5.2); WHITE BLOOD COUNT 8.7 K/mm3 (4.0-10.0)
[2018-03-15 07:57] LABS: ANION GAP 9 MMOL/L (8-16); BLOOD UREA NITROGEN 12 mg/dL (7-18); CALCIUM 8.3 mg/dL (8.5-10.1); CHLORIDE 107 mmol/L (98-107); CO2 24 mmol/L (21-32); CREATININE 0.7 mg/dL (0.55-1.3); GLUCOSE,RANDOM 81 mg/dL (74-106); MAGNESIUM 1.9 mg/dL (1.8-2.4); POTASSIUM 3.9 mmol/L (3.5-5.1); SODIUM 140 mmol/L (136-145)
--- NOTE | 2018-03-15 08:44 | PN ---
Progress Note, Physician Chief Complaint: Ms Patel complains of itching at the sites where tape was placed. Feels the RLE is still swollen but improved. Otherwise feels well and denies cp, sob, n/ v. Hoping to go home tomorrow. - Current Medication List Current Medications: Active Medications Acetaminophen (Tylenol -) 650 mg PO Q4H PRN PRN Reason: PAIN Last Admin: 03/15/18 06:41 Dose: 650 mg Ascorbic Acid (Vitamin C -) 500 mg PO DAILY [facility] Last Admin: 03/14/18 11:01 Dose: 500 mg Atorvastatin Calcium (Lipitor -) 10 mg PO HS [facility] Last Admin: 03/14/18 21:14 Dose: 10 mg Cholecalciferol (Vitamin D3 -) 1,000 unit PO DAILY [facility] Last Admin: 03/14/18 11:01 Dose: 1,000 unit Diphenhydramine HCl (Benadryl -) 25 mg PO Q6H PRN PRN Reason: FOR ITCHING Enoxaparin Sodium (Lovenox -) 40 mg SQ DAILY [facility] Last Admin: 03/14/18 11:00 Dose: 40 mg Furosemide (Lasix -) 40 mg PO DAILY [facility] Last Admin: 03/14/18 11:00 Dose: 40 mg Vancomycin HCl (Vancomycin (Pre-Docked)) 1,000 mg in 250 mls @ 166.667 mls/hr IVPB Q12H ENEDELIA; Protocol Last Admin: 03/15/18 03:00 Dose: 166.667 mls/hr Piperacillin Sod/Tazobactam (Sod 3.375 gm/ Dextrose) 50 mls @ 100 mls/hr IVPB Q8H-IV ENEDELIA; Protocol Last Admin: 03/15/18 01:28 Dose: 100 mls/hr Lactobacillus Acidophilus (Bacid -) 1 tab PO DAILY [facility]ELIA Last Admin: 03/14/18 10:57 Dose: 1 tab Losartan Potassium (Cozaar -) 100 mg PO DAILY [facility] Last Admin: 03/14/18 10:58 Dose: 100 mg Multivit/Ca Carb/B Cmplx/FA/Prenat (Nephro-Jenn -) 1 tablet PO DAILY [facility]EL[facility] Last Admin: 03/14/18 11:01 Dose: 1 tablet Nifedipine (Procardia Xl -) 90 mg PO HS [facility] Last Admin: 03/14/18 21:14 Dose: 90 mg Ondansetron HCl (Zofran Injection) 4 mg IVPUSH Q6H PRN PRN Reason: NAUSEA Pantoprazole Sodium (Protonix -) 40 mg PO DAILY [facility] Last Admin: 03/14/18 11:01 Dose: 40 mg Potassium Chloride (K-Dur -) 20 meq PO DAILY [facility] Last Admin: 03/14/18 10:58 Dose: 20 meq - Objective Vital Signs: Vital Signs Temperature 36.8 C 03/15/18 05:00 Pulse Rate 79 03/15/18 05:00 Respiratory Rate 20 03/15/18 05:00 Blood Pressure 131/66 03/15/18 05:00 O2 Sat by Pulse Oximetry (%) 96 03/14/18 19:58 Constitutional: Yes: No Distress, Calm, Obese Cardiovascular: Yes: Regular Rate and Rhythm. No: Gallop, Murmur, Rub Respiratory: Yes: Regular, CTA Bilaterally. No: Rales, Rhonchi, Wheezes Gastrointestinal: Yes: Normal Bowel Sounds, Soft. No: Distention, Tenderness Extremities: Yes: Erythema (continues to improve) Edema: Yes Edema: RLE: 1+ Labs: CBC, BMP 03/15/18 06:15 03/15/18 06:15 INR, PTT INR 1.10 (0.83-1.09) H 03/11/18 15:22 Problem List - Problems (1) Cellulitis and abscess of right lower extremity Code(s): L03.115 - CELLULITIS OF RIGHT LOWER LIMB; L02.415 - CUTANEOUS ABSCESS OF RIGHT LOWER LIMB (2) HTN (hypertension) Code(s): I10 - ESSENTIAL (PRIMARY) HYPERTENSION Qualifiers: Hypertension type: essential hypertension Qualified Code(s): I10 - Essential (primary) hypertension (3) HLD (hyperlipidemia) Code(s): E78.5 - HYPERLIPIDEMIA, UNSPECIFIED Qualifiers: Hyperlipidemia type: pure hypercholesterolemia Qualified Code(s): E78.00 - Pure hypercholesterolemia, unspecified; E78.0 - Pure hypercholesterolemia (4) Ulcer of right foot with fat layer exposed Code(s): L97.512 - NON-PRS CHRONIC ULCER OTH PRT RIGHT FOOT W FAT LAYER EXPOSED Assessment/Plan (1) Cellulitis and abscess of right lower extremity Assessment/Plan: -ID note from 03/14 reviewed -continue vancomycin and zosyn -vancomycin trough resulted -defer to ID if needs adjustment -continues to improve Code(s): L03.115 - CELLULITIS OF RIGHT LOWER LIMB; L02.415 - CUTANEOUS ABSCESS OF RIGHT LOWER LIMB (2) HTN (hypertension) Assessment/Plan: -continue lasix, nifedipine, and avapro Code(s): I10 - ESSENTIAL (PRIMARY) HYPERTENSION (3) HLD (hyperlipidemia) Assessment/Plan: -continue lipitor Code(s): E78.5 - HYPERLIPIDEMIA, UNSPECIFIED (4) Ulcer of right foot with fat layer exposed Assessment/Plan: -appreciate Dr Gregorio's assistance and note reviewed -continue antibiotics -on discharge acetic acid wash and gentamicin cream bid recommended Code(s): L97.512 - NON-PRS CHRONIC ULCER OTH PRT RIGHT FOOT W FAT LAYER EXPOSED (5) Pruritis -prn benadryl Dispo -hopeful discharge tomorrow pending ID recommendations
[2018-03-15] MEDS: PANTOPRAZOLE 40 MG TABLET (FP) PO SCH (09:41)
[2018-03-15] MEDS: ENOXAPARIN NA (PORCINE) 40 MG/0.4 ML DISP.SYRIN SQ SCH (09:41)
[2018-03-15] MEDS: POTASSIUM CHLORIDE TABS 20 MEQ TABLET.ER (FP) PO SCH (09:41)
[2018-03-15] MEDS: CHOLECALCIFEROL (VITAMIN D3) 1,000 UNIT TABLET (FP) PO SCH (09:41)
[2018-03-15] MEDS: LACTOBACILLUS ACIDOPHILUS 1 TABLET PO SCH (09:41)
[2018-03-15] MEDS: diphenhydrAMINE HCL 25 MG CAPSULE (FP) PO PRN (09:41)
[2018-03-15] MEDS: FUROSEMIDE 40 MG TABLET (FP) PO SCH (09:41)
[2018-03-15] MEDS: VITAMIN B COMP W-C 1 EA TABLET PO SCH (09:41)
[2018-03-15] MEDS: LOSARTAN POTASSIUM 50 MG TABLET (FP) PO SCH (09:42)
[2018-03-15] MEDS: ASCORBIC ACID 500 MG TABLET (FP) PO SCH (09:42)
--- NOTE | 2018-03-15 11:45 | PN ---
Progress Note (short form) - Note Progress Note: reports improvement in erythema less leg discomfort Vital Signs Period Temp Pulse Resp BP Sys/Tomlinson Pulse Ox Last 24 Hr 97.8 F-98.7 F 79-88 18-20 118-131/57-66 94-96 cor-rrr lungs clear abd soft,nt ext less erythema/induration noted CBC, BMP 03/15/18 06:15 03/15/18 06:15 Microbiology 03/11/18 15:22 Blood - Peripheral Venous Blood Culture - Preliminary NO GROWTH OBTAINED AFTER 72 HOURS, INCUBATION TO CONTINUE FOR 2 DAYS. 03/11/18 14:15 Blood - Peripheral Venous Blood Culture - Preliminary NO GROWTH OBTAINED AFTER 72 HOURS, INCUBATION TO CONTINUE FOR 2 DAYS. 03/11/18 15:22 Urine - Urine Clean Catch Urine Culture - Final Contaminated: Please Repeat 03/11/18 15:00 Toe - Right Second Gram Stain - Final 03/11/18 15:00 Toe - Right Second Wound Culture - Final Pseudomonas Aeruginosa a/p celllitis improved recent TKR continue vanco/zosyn vanco trough 12.1
[2018-03-15] MEDS ORDERED: PT OWN MED DRAWER 7, Y5N ONE (21:21)
[2018-03-15] MEDS: ATORVASTATIN CA 10 MG TABLET (FP) PO SCH (22:08)
[2018-03-15] MEDS: NIFEdipine E.R. 90 MG TABLET (FP) PO SCH (22:09)
[2018-03-16] MEDS ORDERED: DEXTROSE 5%-WATER - 50 ML IVPB ONE ×3 (00:13→14:15)
[2018-03-16] MEDS ORDERED: PIPERACILLIN/TAZOBACTAM 3.375 GM VIAL IVPB ONE ×3 (00:13→14:15)
[2018-03-16] MEDS: PIPERACILLIN/TAZOB 3.375 GM 3.375 GM in DEXTROSE 5%-WATER - 50 ML IVPB SCH ×2 (01:09→09:21)
[2018-03-16] MEDS: VANCOMYCIN 1 GRAM (PRE-DOCKED) 1,000 MG/250 ML BAG IVPB SCH ×2 (01:43→13:00)
[2018-03-16 07:09] LABS: BASO % 1.2 % (0-2.0); EOS % 3.4 % (0-4.5); HEMATOCRIT 32.6 % (32.4-45.2); HEMOGLOBIN 10.5 GM/dL (10.7-15.3); LYMPH % 17.6 % (8-40); MCH 28.1 pg (25.7-33.7); MCHC 32.3 g/dl (32.0-36.0); MEAN PLT VOLUME 7.3 fl (7.5-11.1); MONO % 7.3 % (3.8-10.2); NEUT % 70.5 % (42.8-82.8); PLATELET COUNT 302 K/MM3 (134-434); RBC 3.75 M/mm3 (3.60-5.2); WHITE BLOOD COUNT 9.9 K/mm3 (4.0-10.0)
[2018-03-16 07:45] LABS: ANION GAP 7 MMOL/L (8-16); BLOOD UREA NITROGEN 12 mg/dL (7-18); CALCIUM 8.4 mg/dL (8.5-10.1); CHLORIDE 108 mmol/L (98-107); CO2 25 mmol/L (21-32); CREATININE 0.7 mg/dL (0.55-1.3); GLUCOSE,RANDOM 79 mg/dL (74-106); PHOSPHOROUS 2.9 mg/dL (2.5-4.9); SODIUM 141 mmol/L (136-145)
--- NOTE | 2018-03-16 08:52 | PN ---
Progress Note (short form) - Note Progress Note: Ortho Pt seen and examined s/p right LE cellulitis, right tkr- slightly more erythema and pain today Selected Entries 03/16/18 05:48 Temperature 98.0 F Pulse Rate 78 Respiratory 20 Rate Blood Pressure 145/69 Laboratory Tests 03/16/18 06:00 WBC 9.9 Hgb 10.5 L Hct 32.6 Plt Count 302 slight incr erythema, +ttp LE- right knee doing well nvi a/p ID f/u Abx as per ID rom exercises d/w Dr. Parker
[2018-03-16] MEDS: ACETAMINOPHEN 325 MG TABLET (FP) PO PRN ×2 (09:19→21:11)
[2018-03-16] MEDS: VITAMIN B COMP W-C 1 EA TABLET PO SCH (09:20)
[2018-03-16] MEDS: POTASSIUM CHLORIDE TABS 20 MEQ TABLET.ER (FP) PO SCH (09:20)
[2018-03-16] MEDS: LOSARTAN POTASSIUM 50 MG TABLET (FP) PO SCH (09:20)
[2018-03-16] MEDS: LACTOBACILLUS ACIDOPHILUS 1 TABLET PO SCH (09:20)
[2018-03-16] MEDS: diphenhydrAMINE HCL 25 MG CAPSULE (FP) PO PRN ×2 (09:20→21:11)
[2018-03-16] MEDS: FUROSEMIDE 40 MG TABLET (FP) PO SCH (09:21)
[2018-03-16] MEDS: CHOLECALCIFEROL (VITAMIN D3) 1,000 UNIT TABLET (FP) PO SCH (09:21)
[2018-03-16] MEDS: ENOXAPARIN NA (PORCINE) 40 MG/0.4 ML DISP.SYRIN SQ SCH (09:21)
[2018-03-16] MEDS: ASCORBIC ACID 500 MG TABLET (FP) PO SCH (09:21)
[2018-03-16] MEDS: PANTOPRAZOLE 40 MG TABLET (FP) PO SCH (09:21)
--- NOTE | 2018-03-16 14:21 | PN ---
Progress Note, Physician History of Present Illness: Awake, alert Supine in bed C/O pain, lateral aspect R LE No fever/chills Wound c/s Pseudomonas sp - Current Medication List Current Medications: Active Medications Acetaminophen (Tylenol -) 650 mg PO Q4H PRN PRN Reason: PAIN Last Admin: 03/16/18 09:19 Dose: 650 mg Ascorbic Acid (Vitamin C -) 500 mg PO DAILY [facility] Last Admin: 03/16/18 09:21 Dose: 500 mg Atorvastatin Calcium (Lipitor -) 10 mg PO HS [facility] Last Admin: 03/15/18 22:08 Dose: 10 mg Cholecalciferol (Vitamin D3 -) 1,000 unit PO DAILY [facility] Last Admin: 03/16/18 09:21 Dose: 1,000 unit Diphenhydramine HCl (Benadryl -) 25 mg PO Q6H PRN PRN Reason: FOR ITCHING Last Admin: 03/16/18 09:20 Dose: 25 mg Enoxaparin Sodium (Lovenox -) 40 mg SQ DAILY [facility] Last Admin: 03/16/18 09:21 Dose: 40 mg Furosemide (Lasix -) 40 mg PO DAILY [facility] Last Admin: 03/16/18 09:21 Dose: 40 mg Vancomycin HCl (Vancomycin (Pre-Docked)) 1,000 mg in 250 mls @ 166.667 mls/hr IVPB Q12H ENEDELIA; Protocol Last Admin: 03/16/18 13:00 Dose: 166.667 mls/hr Piperacillin Sod/Tazobactam (Sod 3.375 gm/ Dextrose) 50 mls @ 100 mls/hr IVPB Q8H-IV ENEDELIA; Protocol Last Admin: 03/16/18 09:21 Dose: 100 mls/hr Lactobacillus Acidophilus (Bacid -) 1 tab PO DAILY [facility] Last Admin: 03/16/18 09:20 Dose: 1 tab Losartan Potassium (Cozaar -) 100 mg PO DAILY [facility] Last Admin: 03/16/18 09:20 Dose: 100 mg Multivit/Ca Carb/B Cmplx/FA/Prenat (Nephro-Jenn -) 1 tablet PO DAILY [facility] Last Admin: 03/16/18 09:20 Dose: 1 tablet Nifedipine (Procardia Xl -) 90 mg PO HS [facility] Last Admin: 03/15/18 22:09 Dose: 90 mg Ondansetron HCl (Zofran Injection) 4 mg IVPUSH Q6H PRN PRN Reason: NAUSEA Pantoprazole Sodium (Protonix -) 40 mg PO DAILY [facility] Last Admin: 03/16/18 09:21 Dose: 40 mg Potassium Chloride (K-Dur -) 20 meq PO DAILY [facility] Last Admin: 03/16/18 09:20 Dose: 20 meq - Objective Vital Signs: Vital Signs Temperature 98.2 F 03/16/18 14:00 Pulse Rate 86 03/16/18 14:00 Respiratory Rate 20 03/16/18 14:00 Blood Pressure 134/63 03/16/18 14:00 O2 Sat by Pulse Oximetry (%) 95 03/16/18 09:00 Constitutional: Yes: No Distress Eyes: Yes: Conjunctiva Clear Cardiovascular: Yes: Regular Rate and Rhythm, S1, S2 Respiratory: Yes: CTA Bilaterally Gastrointestinal: Yes: Normal Bowel Sounds, Soft. No: Tenderness Extremities: Yes: Other (erythema RE fading and receding from traced out margins ; now with faint streak extending from pretibial area toward but not reaching knee) Integumentary: Yes: Other (dry ulcer R foot) Labs: CBC, BMP 03/16/18 06:00 03/16/18 06:00 INR, PTT INR 1.10 (0.83-1.09) H 03/11/18 15:22 Assessment/Plan Cellulitis R LE Non-healing ulcer R foot Will likely need PICC for outpatient antibiotics Will switch to cefepime in anticipation Local wound care
[2018-03-16] MEDS ORDERED: DEXTROSE 5%-WATER 100 ML IVPB ONE (16:11)
[2018-03-16] MEDS ORDERED: CEFEPIME HCL 2 GM VIAL (RESTRICTED TO ID) ONE (16:11)
--- NOTE | 2018-03-16 16:18 | PN ---
Physical Exam: SUBJECTIVE: Patient seen and examined at bed side this morning. Was frustrated being in the hospital and regarding her medical condition. Spoke with the patient in detail and she felt better. Has pain on the right lower ext on/off, better with tylenol. Denies chest pain, sob, cough, palpitation, abdominal pain , nausea or vomiting. No acute overnight events. OBJECTIVE: Vital Signs Period Temp Pulse Resp BP Sys/Tomlinson Pulse Ox Last 24 Hr 98.0 F-98.8 F 78-86 18-20 115-145/59-69 95-96 GENERAL: Elderly female, is lying in bed, is awake, alert, and fully oriented, in no acute distress. HEAD: Normal with no signs of trauma. EYES: EOM intact, no pallor or icterus. ENT: Ears normal, moist mucous membranes. NECK: Supple. LUNGS: Breath sounds equal, clear to auscultation bilaterally, no wheezes, no crackles, no accessory muscle use. HEART: Regular rate and rhythm, S1, S2 without murmur, rub or gallop. ABDOMEN: Soft, nontender, BS +, no organomegaly. UPPER EXTREMITIES: 2+ pulses, warm, well-perfused, no edema. LOWER EXTREMITIES: RIGHT LE: Erythema +, raised temperature, pitting edema. Black eschar in between great toe and second digit-no pus. DP, TP ++ Surgical scar tobin + right knee- area looks clean, non infected. NEUROLOGICAL: No facial droop, Cranial nerves II through XII grossly intact. Normal speech, gait not observed. PSYCH: Normal mood, normal affect. SKIN: Warm, dry, normal turgor, no rashes or lesions noted Laboratory Results - last 24 hr 03/16/18 03/16/18 06:00 06:00 WBC 9.9 RBC 3.75 Hgb 10.5 L Hct 32.6 MCV 87.0 MCH 28.1 MCHC 32.3 RDW 15.0 Plt Count 302 MPV 7.3 L Absolute Neuts (auto) 7.0 Neutrophils % 70.5 Lymphocytes % 17.6 D Monocytes % 7.3 Eosinophils % 3.4 Basophils % 1.2 Nucleated RBC % 0 Sodium 141 Potassium 4.0 Chloride 108 H Carbon Dioxide 25 Anion Gap 7 L BUN 12 Creatinine 0.7 Creat Clearance w eGFR > 60 Random Glucose 79 Calcium 8.4 L Phosphorus 2.9 Magnesium 2.0 Active Medications Generic Name Dose Route Start Last Admin Trade Name Freq PRN Reason Stop Dose Admin Acetaminophen 650 mg 03/11/18 18:10 03/16/18 09:19 Tylenol - PO 650 mg Q4H PRN Administration PAIN Ascorbic Acid 500 mg 03/12/18 10:00 03/16/18 09:21 Vitamin C - PO 500 mg DAILY ENEDELIA Administration Atorvastatin Calcium 10 mg 03/11/18 22:00 03/15/18 22:08 Lipitor - PO 10 mg HS ENEDELIA Administration Cholecalciferol 1,000 unit 03/12/18 10:00 03/16/18 09:21 Vitamin D3 - PO 1,000 unit DAILY ENEDELIA Administration Diphenhydramine HCl 25 mg 03/15/18 08:34 03/16/18 09:20 Benadryl - PO 25 mg Q6H PRN Administration FOR ITCHING Enoxaparin Sodium 40 mg 03/12/18 10:00 03/16/18 09:21 Lovenox - SQ 40 mg DAILY ENEDELIA Administration Furosemide 40 mg 03/12/18 10:00 03/16/18 09:21 Lasix - PO 40 mg DAILY ENEDELIA Administration Cefepime HCl 2 gm/ Dextrose 100 mls @ 200 mls/hr 03/16/18 18:00 IVPB Q8H-IV ENEDELIA Protocol Vancomycin HCl 1,250 mg/ 250 mls @ 166.667 mls/hr 03/17/18 02:00 Dextrose IVPB Q12H ENEDELIA Protocol Lactobacillus Acidophilus 1 tab 03/11/18 18:15 03/16/18 09:20 Bacid - PO 1 tab DAILY ENEDELIA Administration Losartan Potassium 100 mg 03/12/18 10:00 03/16/18 09:20 Cozaar - PO 100 mg DAILY ENEDELIA Administration Multivit/Ca Carb/B Cmplx/FA/Prenat 1 tablet 03/12/18 10:00 03/16/18 09:20 Nephro-Jenn - PO 1 tablet DAILY ENEDELIA Administration Nifedipine 90 mg 03/11/18 22:00 03/15/18 22:09 Procardia Xl - PO 90 mg HS ENEDELIA Administration Ondansetron HCl 4 mg 03/11/18 18:10 Zofran Injection IVPUSH Q6H PRN NAUSEA Pantoprazole Sodium 40 mg 03/12/18 10:00 03/16/18 09:21 Protonix - PO 40 mg DAILY ENEDELIA Administration Potassium Chloride 20 meq 03/12/18 10:00 03/16/18 09:20 K-Dur - PO 20 meq DAILY ENEDELIA Administration ASSESSMENT/PLAN: Patient is a 68 year old female with PMH x of HTN, HLD, Right TKR (01/15) presented to the ED with RLE redness was found to have cellulitis # Right LE Cellulitis 03/11/18 DVT ruled out Continue IV Vancomycin 1 gm BID (Van trough 12.5 03/14) Zosyn discontinued today. Started on IV Cefepime 2 gm IV Q8H Continue Benadryl for itching (Avoid tapes on the skin) Appreciate Dr. Gama input: Upon discharge continue acetic acid wash and gentamicin BID # Diarrhoea Had 3 episodes of diarrhoea yesterday. Monitor. Continue Bacid PO daily # Hypertension-controlled Continue Losartan 100 mg and Nifedipine 90 mg and lasix 40mg Daily and Kdur 20mg # Hyperlipidemia continue Statin 10mg # FEN Not on IV fluids, can tolerate PO Electrolytes WNL Sodium controlled diet # Prophylaxis For DVT: Continue Lovenox 40 mg sq daily For GI: not indicated # Code Status : Full code Illness, Investigation and Plan of care explained to the patient. She verbalized understanding. Case discussed with Dr. Pfeiffer. Problem List - Problems (1) Cellulitis Code(s): L03.90 - CELLULITIS, UNSPECIFIED Qualifiers: Site of cellulitis: extremity Site of cellulitis of extremity: lower extremity Laterality: right Qualified Code(s): L03.115 - Cellulitis of right lower limb (2) DVT prophylaxis Code(s): [id number] - (3) HLD (hyperlipidemia) Code(s): E78.5 - HYPERLIPIDEMIA, UNSPECIFIED Qualifiers: Hyperlipidemia type: pure hypercholesterolemia Qualified Code(s): E78.00 - Pure hypercholesterolemia, unspecified; E78.0 - Pure hypercholesterolemia (4) HTN (hypertension) Code(s): I10 - ESSENTIAL (PRIMARY) HYPERTENSION Qualifiers: Hypertension type: essential hypertension Qualified Code(s): I10 - Essential (primary) hypertension (5) Ulcer of right foot with fat layer exposed Code(s): L97.512 - NON-PRS CHRONIC ULCER OTH PRT RIGHT FOOT W FAT LAYER EXPOSED Visit type - Emergency Visit Emergency Visit: Yes ED Registration Date: 03/11/18 Care time: The patient presented to the Emergency Department on the above date and was hospitalized for further evaluation of their emergent condition. - New Patient This patient is new to me today: Yes Date on this admission: 03/16/18 - Critical Care Critical Care patient: No - Discharge Referral Referred to [facility] Med P.C.: No
--- NOTE | 2018-03-16 16:46 | PN ---
Teaching Attending Note Name of Resident: Linsey Ochoa ATTENDING PHYSICIAN STATEMENT I saw and evaluated the patient. I reviewed the resident's note and discussed the case with the resident. I agree with the resident's findings and plan as documented. SUBJECTIVE: Ms Patel expresses frustration at not improving faster. Still with pain in her RLE but improved. No cp, sob, n/v. OBJECTIVE: Gen: nad Pulm: ctab w/o w/r/r CV: rrr w/o m/r/g Abd: +bs, s/nt/nd Ext: RLE erythema improved, but now with streaking ASSESSMENT AND PLAN: -case d/w Dr Haines -change zosyn to cefepime -continue vancomycin -will need longer course of IV antibiotics -plan for PICC line tomorrow and home antibiotics -continue current management otherwise Problem List - Problems (1) Cellulitis and abscess of right lower extremity Code(s): L03.115 - CELLULITIS OF RIGHT LOWER LIMB; L02.415 - CUTANEOUS ABSCESS OF RIGHT LOWER LIMB (2) HTN (hypertension) Code(s): I10 - ESSENTIAL (PRIMARY) HYPERTENSION Qualifiers: Hypertension type: essential hypertension Qualified Code(s): I10 - Essential (primary) hypertension (3) HLD (hyperlipidemia) Code(s): E78.5 - HYPERLIPIDEMIA, UNSPECIFIED Qualifiers: Hyperlipidemia type: pure hypercholesterolemia Qualified Code(s): E78.00 - Pure hypercholesterolemia, unspecified; E78.0 - Pure hypercholesterolemia (4) Ulcer of right foot with fat layer exposed Code(s): L97.512 - NON-PRS CHRONIC ULCER OTH PRT RIGHT FOOT W FAT LAYER EXPOSED
[2018-03-16] MEDS: CEFEPIME 2 GM in DEXTROSE 5%-WATER 100 ML IVPB SCH (17:07)
[2018-03-16] MEDS: NIFEdipine E.R. 90 MG TABLET (FP) PO SCH (21:10)
[2018-03-16] MEDS: ATORVASTATIN CA 10 MG TABLET (FP) PO SCH (21:10)
[2018-03-17] MEDS ORDERED: DEXTROSE 5%-WATER 100 ML IVPB ONE ×3 (01:17→16:21)
[2018-03-17] MEDS ORDERED: CEFEPIME HCL 2 GM VIAL (RESTRICTED TO ID) ONE ×3 (01:17→16:21)
[2018-03-17] MEDS: CEFEPIME 2 GM in DEXTROSE 5%-WATER 100 ML IVPB SCH ×3 (01:30→17:01)
[2018-03-17] MEDS: VANCOMYCIN 1,250 MG in DEXTROSE 5%-WATER - 250 ML IVPB SCH ×2 (02:21→13:04)
[2018-03-17] MEDS: diphenhydrAMINE HCL 25 MG CAPSULE (FP) PO PRN (04:16)
[2018-03-17] MEDS: ACETAMINOPHEN 325 MG TABLET (FP) PO PRN (06:02)
[2018-03-17 07:26] LABS: HEMATOCRIT 32.5 % (32.4-45.2); HEMOGLOBIN 10.6 GM/dL (10.7-15.3); MCH 28.5 pg (25.7-33.7); MCHC 32.7 g/dl (32.0-36.0); MEAN CELL VOLUME 87.1 fl (80-96); MEAN PLT VOLUME 7.2 fl (7.5-11.1); PLATELET COUNT 326 K/MM3 (134-434); RBC 3.73 M/mm3 (3.60-5.2); RDW 14.7 % (11.6-15.6); WHITE BLOOD COUNT 8.9 K/mm3 (4.0-10.0)
[2018-03-17 07:52] LABS: ANION GAP 8 MMOL/L (8-16); BLOOD UREA NITROGEN 9 mg/dL (7-18); CALCIUM 8.4 mg/dL (8.5-10.1); CHLORIDE 111 mmol/L (98-107); CO2 22 mmol/L (21-32); CREATININE 0.6 mg/dL (0.55-1.3); GLUCOSE,RANDOM 78 mg/dL (74-106); POTASSIUM 3.7 mmol/L (3.5-5.1); SODIUM 141 mmol/L (136-145)
[2018-03-17] MEDS ORDERED: PT OWN MED DRAWER 7, Y5N ONE ×2 (09:05→16:36)
[2018-03-17] MEDS: PANTOPRAZOLE 40 MG TABLET (FP) PO SCH (09:37)
[2018-03-17] MEDS: ENOXAPARIN NA (PORCINE) 40 MG/0.4 ML DISP.SYRIN SQ SCH (09:37)
[2018-03-17] MEDS: LACTOBACILLUS ACIDOPHILUS 1 TABLET PO SCH (09:37)
[2018-03-17] MEDS: CHOLECALCIFEROL (VITAMIN D3) 1,000 UNIT TABLET (FP) PO SCH (09:37)
[2018-03-17] MEDS: VITAMIN B COMP W-C 1 EA TABLET PO SCH (09:37)
[2018-03-17] MEDS: POTASSIUM CHLORIDE TABS 20 MEQ TABLET.ER (FP) PO SCH (09:37)
[2018-03-17] MEDS: FUROSEMIDE 40 MG TABLET (FP) PO SCH (09:37)
[2018-03-17] MEDS: ASCORBIC ACID 500 MG TABLET (FP) PO SCH (09:38)
[2018-03-17] MEDS: LOSARTAN POTASSIUM 50 MG TABLET (FP) PO SCH (09:38)
--- NOTE | 2018-03-17 10:37 | PN ---
Progress Note, Physician History of Present Illness: Awake, alert Supine in bed Reports less pain lateral aspect R LE No fever/chills Wound c/s Pseudomonas sp - Current Medication List Current Medications: Active Medications Acetaminophen (Tylenol -) 650 mg PO Q4H PRN PRN Reason: PAIN Last Admin: 03/17/18 06:02 Dose: 650 mg Ascorbic Acid (Vitamin C -) 500 mg PO DAILY [facility] Last Admin: 03/17/18 09:38 Dose: 500 mg Atorvastatin Calcium (Lipitor -) 10 mg PO HS [facility] Last Admin: 03/16/18 21:10 Dose: 10 mg Cholecalciferol (Vitamin D3 -) 1,000 unit PO DAILY ENEDELIA Last Admin: 03/17/18 09:37 Dose: 1,000 unit Diphenhydramine HCl (Benadryl -) 25 mg PO Q6H PRN PRN Reason: FOR ITCHING Last Admin: 03/17/18 04:16 Dose: 25 mg Enoxaparin Sodium (Lovenox -) 40 mg SQ DAILY [facility] Last Admin: 03/17/18 09:37 Dose: 40 mg Furosemide (Lasix -) 40 mg PO DAILY ENEDELIA Last Admin: 03/17/18 09:37 Dose: 40 mg Cefepime HCl 2 gm/ Dextrose 100 mls @ 200 mls/hr IVPB Q8H-IV ENEDELIA; Protocol Last Admin: 03/17/18 09:36 Dose: 200 mls/hr Vancomycin HCl 1,250 mg/ (Dextrose) 250 mls @ 166.667 mls/hr IVPB Q12H ENEDELIA; Protocol Last Admin: 03/17/18 02:21 Dose: 166.667 mls/hr Lactobacillus Acidophilus (Bacid -) 1 tab PO DAILY ENEDELIA Last Admin: 03/17/18 09:37 Dose: 1 tab Losartan Potassium (Cozaar -) 100 mg PO DAILY [facility] Last Admin: 03/17/18 09:38 Dose: 100 mg Multivit/Ca Carb/B Cmplx/FA/Prenat (Nephro-Jenn -) 1 tablet PO DAILY ENEDELIA Last Admin: 03/17/18 09:37 Dose: 1 tablet Nifedipine (Procardia Xl -) 90 mg PO HS [facility] Last Admin: 03/16/18 21:10 Dose: 90 mg Ondansetron HCl (Zofran Injection) 4 mg IVPUSH Q6H PRN PRN Reason: NAUSEA Pantoprazole Sodium (Protonix -) 40 mg PO DAILY [facility] Last Admin: 03/17/18 09:37 Dose: 40 mg Potassium Chloride (K-Dur -) 20 meq PO DAILY [facility] Last Admin: 03/17/18 09:37 Dose: 20 meq - Objective Vital Signs: Vital Signs Temperature 98.8 F 03/17/18 08:54 Pulse Rate 84 03/17/18 08:54 Respiratory Rate 20 03/17/18 08:54 Blood Pressure 140/68 03/17/18 08:54 O2 Sat by Pulse Oximetry (%) 95 03/17/18 08:48 Constitutional: Yes: No Distress Eyes: Yes: Conjunctiva Clear Cardiovascular: Yes: Regular Rate and Rhythm, S1, S2 Respiratory: Yes: CTA Bilaterally Gastrointestinal: Yes: Normal Bowel Sounds, Soft. No: Tenderness Extremities: Yes: Other (decreased erythema R LE; less tenderness R lateral leg. R foot ulcer dry.) Labs: CBC, BMP 03/17/18 06:30 03/17/18 06:30 INR, PTT INR 1.10 (0.83-1.09) H 03/11/18 15:22 Assessment/Plan Cellulitis R LE improved Non-healing ulcer R foot Reported to have boggy area R lateral calf To obtain US to R/O colllection Will need PICC for outpatient antibiotics: cefepime 2gm IVPB q12h+ vancomycin 1250mg IVPB q12h additional 10d Will follow up in office 1w
--- NOTE | 2018-03-17 12:19 | PN ---
Physical Exam: SUBJECTIVE: Patient seen and examined at bed side this morning. Has pain on/off in the right lower extremity. States she felt her legs are boggy in the RLE. Denies chest pain, sob, cough, palpitation, abdominal pain, nausea or vomiting. Discussed about placing a PICC line for IV antibiotics before discharging home. Wants to know when she can go to work. No acute overnight events. OBJECTIVE: Vital Signs Period Temp Pulse Resp BP Sys/Tomlinson Pulse Ox Last 24 Hr 98.0 F-98.9 F 82-88 18-20 129-150/55-77 95-96 GENERAL: Elderly female, is lying in bed, is awake, alert, and fully oriented, in no acute distress. HEAD: Normal with no signs of trauma. EYES: EOM intact, no pallor or icterus. ENT: Ears normal, moist mucous membranes. NECK: Supple. LUNGS: Breath sounds equal, clear to auscultation bilaterally, no wheezes, no crackles, no accessory muscle use. HEART: Regular rate and rhythm, S1, S2 without murmur, rub or gallop. ABDOMEN: Soft, nontender, BS +, no organomegaly. UPPER EXTREMITIES: 2+ pulses, warm, well-perfused, no edema. LOWER EXTREMITIES: RIGHT LE: Erythema + (looks better), raised temperature, pitting edema. Black eschar in between great toe and second digit-no pus. DP, TP ++ Surgical scar tobin + right knee- area looks clean, non infected. NEUROLOGICAL: No facial droop, Cranial nerves II through XII grossly intact. Normal speech, gait not observed. PSYCH: Normal mood, normal affect. SKIN: Warm, dry, normal turgor, no rashes or lesions noted Laboratory Results - last 24 hr 03/17/18 03/17/18 06:30 06:30 WBC 8.9 RBC 3.73 Hgb 10.6 L Hct 32.5 MCV 87.1 MCH 28.5 MCHC 32.7 RDW 14.7 Plt Count 326 MPV 7.2 L Sodium 141 Potassium 3.7 Chloride 111 H Carbon Dioxide 22 Anion Gap 8 BUN 9 Creatinine 0.6 Creat Clearance w eGFR > 60 Random Glucose 78 Calcium 8.4 L Active Medications Generic Name Dose Route Start Last Admin Trade Name Freq PRN Reason Stop Dose Admin Acetaminophen 650 mg 03/11/18 18:10 03/17/18 06:02 Tylenol - PO 650 mg Q4H PRN Administration PAIN Ascorbic Acid 500 mg 03/12/18 10:00 03/17/18 09:38 Vitamin C - PO 500 mg DAILY ENEDELIA Administration Atorvastatin Calcium 10 mg 03/11/18 22:00 03/16/18 21:10 Lipitor - PO 10 mg HS ENEDELIA Administration Cholecalciferol 1,000 unit 03/12/18 10:00 03/17/18 09:37 Vitamin D3 - PO 1,000 unit DAILY ENEDELIA Administration Diphenhydramine HCl 25 mg 03/15/18 08:34 03/17/18 04:16 Benadryl - PO 25 mg Q6H PRN Administration FOR ITCHING Enoxaparin Sodium 40 mg 03/12/18 10:00 03/17/18 09:37 Lovenox - SQ 40 mg DAILY ENEDELIA Administration Furosemide 40 mg 03/12/18 10:00 03/17/18 09:37 Lasix - PO 40 mg DAILY ENEDELIA Administration Cefepime HCl 2 gm/ Dextrose 100 mls @ 200 mls/hr 03/16/18 18:00 03/17/18 09: 36 IVPB 200 mls/hr Q8H-IV ENEDELIA Administration Protocol Vancomycin HCl 1,250 mg/ 250 mls @ 166.667 mls/hr 03/17/18 02:00 03/17/18 02: 21 Dextrose IVPB 166.667 mls/hr Q12H ENEDELIA Administration Protocol Lactobacillus Acidophilus 1 tab 03/11/18 18:15 03/17/18 09:37 Bacid - PO 1 tab DAILY ENEDELIA Administration Losartan Potassium 100 mg 03/12/18 10:00 03/17/18 09:38 Cozaar - PO 100 mg DAILY ENEDELIA Administration Multivit/Ca Carb/B Cmplx/FA/Prenat 1 tablet 03/12/18 10:00 03/17/18 09:37 Nephro-Jenn - PO 1 tablet DAILY ENEDELIA Administration Nifedipine 90 mg 03/11/18 22:00 03/16/18 21:10 Procardia Xl - PO 90 mg HS ENDEELIA Administration Ondansetron HCl 4 mg 03/11/18 18:10 Zofran Injection IVPUSH Q6H PRN NAUSEA Pantoprazole Sodium 40 mg 03/12/18 10:00 12/18/18 09:37 Protonix - PO 40 mg DAILY ENEDELIA Administration Potassium Chloride 20 meq 03/12/18 10:00 03/17/18 09:37 K-Dur - PO 20 meq DAILY ENEDELIA Administration ASSESSMENT/PLAN: Patient is a 68 year old female with PMH x of HTN, HLD, Right TKR (01/15) presented to the ED with RLE redness was found to have cellulitis # Right LE Cellulitis-resolving Ultrasound of the RLE ordered to r/o any abscess, if there are no abscess, plan is to place a PICC and send home on IV abx. Continue IV cefepime 2gm IVPB BID and Vancomycin 1250mg IVPB q12h for additional 10 days. 03/11/18: wound cx right second toe: pseudomonas 03/11/18 DVT ruled out Continue Benadryl for itching (Avoid tapes on the skin) Appreciate Dr. Gama input: Upon discharge continue acetic acid wash and gentamicin BID # Diarrhoea Had 3 episodes of diarrhoea x 2 days. Monitor. c. diff unlikely. Continue Bacid PO daily # Hypertension-controlled Continue Losartan 100 mg and Nifedipine 90 mg and lasix 40mg Daily and Kdur 20mg # Hyperlipidemia continue Statin 10mg # FEN Not on IV fluids, can tolerate PO Electrolytes WNL Sodium controlled diet # Prophylaxis For DVT: Continue Lovenox 40 mg sq daily For GI: not indicated # Code Status : Full code Illness, Investigation and Plan of care explained to the patient. She verbalized understanding. Case to be discussed with Dr. Pfeiffer. Problem List - Problems (1) Cellulitis Code(s): L03.90 - CELLULITIS, UNSPECIFIED Qualifiers: Site of cellulitis: extremity Site of cellulitis of extremity: lower extremity Laterality: right Qualified Code(s): L03.115 - Cellulitis of right lower limb (2) DVT prophylaxis Code(s): [id number] - (3) HLD (hyperlipidemia) Code(s): E78.5 - HYPERLIPIDEMIA, UNSPECIFIED Qualifiers: Hyperlipidemia type: pure hypercholesterolemia Qualified Code(s): E78.00 - Pure hypercholesterolemia, unspecified; E78.0 - Pure hypercholesterolemia (4) HTN (hypertension) Code(s): I10 - ESSENTIAL (PRIMARY) HYPERTENSION Qualifiers: Hypertension type: essential hypertension Qualified Code(s): I10 - Essential (primary) hypertension (5) Ulcer of right foot with fat layer exposed Code(s): L97.512 - NON-PRS CHRONIC ULCER OTH PRT RIGHT FOOT W FAT LAYER EXPOSED
--- NOTE | 2018-03-17 14:41 | PN ---
Teaching Attending Note Name of Resident: Linsey Ochoa ATTENDING PHYSICIAN STATEMENT I saw and evaluated the patient. I reviewed the resident's note and discussed the case with the resident. I agree with the resident's findings and plan as documented. SUBJECTIVE: Ms Patel complains of frustration secondary to being unsure if her leg is getting better but otherwise is without complaint. No cp, sob, n/v. OBJECTIVE: Gen: nad Pulm: ctab w/o w/r/r CV: rrr w/o m/r/g Abd: +bs, s/nt/nd Ext: RLE erythema, improved ASSESSMENT AND PLAN: Ms Patel is a very pleasant 68 year old female who came in with RLE cellulitis. She was admitted to the hospital. A CT scan was done of her leg and did not have an abscess. ID was consulted and she was continued on vancomycin and zosyn. Podiatry was consulted after her chronic foot wound grew pseudomonas , she should wash her foot with acetic acid 1% wash bid and then gentamicin cream bid. She was seen by orthopedic surgery secondary to recent R TKR but this was stable. She is currently doing well and is without complaint. She will be discharged home on IV antibiotics. 37 minutes spent in preparation of this discharge Problem List - Problems (1) Cellulitis and abscess of right lower extremity Code(s): L03.115 - CELLULITIS OF RIGHT LOWER LIMB; L02.415 - CUTANEOUS ABSCESS OF RIGHT LOWER LIMB (2) HTN (hypertension) Code(s): I10 - ESSENTIAL (PRIMARY) HYPERTENSION Qualifiers: Hypertension type: essential hypertension Qualified Code(s): I10 - Essential (primary) hypertension (3) HLD (hyperlipidemia) Code(s): E78.5 - HYPERLIPIDEMIA, UNSPECIFIED Qualifiers: Hyperlipidemia type: pure hypercholesterolemia Qualified Code(s): E78.00 - Pure hypercholesterolemia, unspecified; E78.0 - Pure hypercholesterolemia (4) Ulcer of right foot with fat layer exposed Code(s): L97.512 - NON-PRS CHRONIC ULCER OTH PRT RIGHT FOOT W FAT LAYER EXPOSED
[2018-03-17 15:37] VITALS: BP 138/81; PULSE 92; TEMP 97.3
--- NOTE | 2018-03-17 19:48 | DS ---
Physical Exam: SUBJECTIVE: Patient seen and examined at bed side this morning. Has pain on/off in the right lower extremity. States she felt her legs are boggy in the RLE. Denies chest pain, sob, cough, palpitation, abdominal pain, nausea or vomiting. Discussed about placing a PICC line for IV antibiotics before discharging home. She agrees. No acute overnight events. OBJECTIVE: Vital Signs Period Temp Pulse Resp BP Sys/Tomlinson Pulse Ox Last 24 Hr 97.3 F-98.8 F 82-92 20-20 136-150/68-81 95-96 PHYSICAL EXAM GENERAL: Elderly female, is lying in bed, is awake, alert, and fully oriented, in no acute distress. HEAD: Normal with no signs of trauma. EYES: EOM intact, no pallor or icterus. ENT: Ears normal, moist mucous membranes. NECK: Supple. LUNGS: Breath sounds equal, clear to auscultation bilaterally, no wheezes, no crackles, no accessory muscle use. HEART: Regular rate and rhythm, S1, S2 without murmur, rub or gallop. ABDOMEN: Soft, nontender, BS +, no organomegaly. UPPER EXTREMITIES: 2+ pulses, warm, well-perfused, no edema. LOWER EXTREMITIES: RIGHT LE: Erythema + (looks better), raised temperature, pitting edema. Black eschar in between great toe and second digit-no pus. DP, TP ++ Surgical scar tobin + right knee- area looks clean, non infected. NEUROLOGICAL: No facial droop, Cranial nerves II through XII grossly intact. Normal speech, gait not observed. PSYCH: Normal mood, normal affect. SKIN: Warm, dry, normal turgor, no rashes or lesions noted LABS Laboratory Results - last 24 hr 03/17/18 03/17/18 06:30 06:30 WBC 8.9 RBC 3.73 Hgb 10.6 L Hct 32.5 MCV 87.1 MCH 28.5 MCHC 32.7 RDW 14.7 Plt Count 326 MPV 7.2 L Sodium 141 Potassium 3.7 Chloride 111 H Carbon Dioxide 22 Anion Gap 8 BUN 9 Creatinine 0.6 Creat Clearance w eGFR > 60 Random Glucose 78 Calcium 8.4 L 03/11/18: wound cx right second toe: pseudomonas 03/11/18: Blood cultures and urine cultures were negative 03/11/18 DVT ruled out 03/17/18 Ultrasound of RLE: No evidence of abscess. HOSPITAL COURSE: Date of Admission:03/11/18 Date of Discharge: 03/17/18 Patient is a 68 year old female with PMH x of HTN, HLD, Right TKR (01/15) presented to the ED with RLE redness was found to have cellulitis. Patient had a right TKR at [facility] 01/15, has been following up with Ortho and with [facility] for chronic ulcer between her large and first toe. Noticed redness of the right lower extremity, saw her wedding planner and orthopedic surgeon who sent her to the ED for further evaluation. Patient admitted with the diagnosis of cellulitis of the RLE. Treated with IV Vancomycin 1250 mg BID and IV Zosyn x 3 days then switched to IV Cefepime 2gm BID. DVT ruled out, abscess was ruled out. PICC line was placed today 03/17/18 to continue IV antibiotics for 10 more days and to f/up with ID in a week. Upon discharge to continue acetic acid wash and gentamicin BID as per Dr. Gama ([facility]). For Hypertension, Losartan 100 mg and Nifedipine 90 mg and lasix 40mg Daily and Kdur 20mg was continued For HLD, Statin was continued Patient is stable and can be discharged home. Illness, Investigation and Plan of care explained to the patient. She verbalized understanding. Case discussed with Dr. Pfeiffer. Minutes to complete discharge: 45 Discharge Summary Reason For Visit: CELLULITIS Condition: Good - Instructions Diet, Activity, Other Instructions: Resume previous diet and activity. 1% acetic acid wash to affected digit twice daily, then apply gentamicin cream after wash Referrals: Charlie Haines MD [Staff Physician] - Maged Lorenzo MD [Primary Care Provider] - Disposition: VNS/HOME HEALTH CARE - Home Medications Comprehensive Discharge Medication List: Ambulatory Orders Ascorbic Acid [Vitamin C -] 500 mg PO DAILY #0 tablet 01/01/13 Atorvastatin Ca [Lipitor] 10 mg PO HS #0 tablet 01/01/13 Furosemide [Lasix -] 40 mg PO DAILY #0 tablet 01/01/13 Nifedipine ER [Procardia XL -] 90 mg PO HS #0 tab.er.24 01/01/13 Cholecalciferol (Vitamin D3) [Vitamin D3] 1,000 unit PO DAILY 09/19/15 Vitamin B Complex Vit C No.4 [Super B Complex] 150 mg PO DAILY 09/19/15 Ibandronate Sodium [Boniva] 3 mg IV MONTHLY 01/09/18 Irbesartan [Avapro] 300 mg PO DAILY 01/09/18 Potassium Chloride [K-Dur -] 20 meq PO DAILY 01/09/18 Pantoprazole Sodium [Protonix -] 40 mg PO DAILY #30 tablet.ec 01/22/18 Cefepime [Maxipime (Restricted To Id) -] 2 gm IVPB Q12H #21 vial 03/17/18 Gentamicin 0.1% Ointment [Garamycin 0.1% Ointment -] 1 applic TP BID #1 tube Lactobacillus Acidophilus [Bacid -] 1 tab PO DAILY #20 tab 03/17/18 Vancomycin 1,250 mg IVPB Q12H #21 vial 03/17/18 Problem List - Problems (1) Cellulitis Code(s): L03.90 - CELLULITIS, UNSPECIFIED Qualifiers: Site of cellulitis: extremity Site of cellulitis of extremity: lower extremity Laterality: right Qualified Code(s): L03.115 - Cellulitis of right lower limb (2) DVT prophylaxis Code(s): PTP9357 - (3) HLD (hyperlipidemia) Code(s): E78.5 - HYPERLIPIDEMIA, UNSPECIFIED Qualifiers: Hyperlipidemia type: pure hypercholesterolemia Qualified Code(s): E78.00 - Pure hypercholesterolemia, unspecified; E78.0 - Pure hypercholesterolemia (4) HTN (hypertension) Code(s): I10 - ESSENTIAL (PRIMARY) HYPERTENSION Qualifiers: Hypertension type: essential hypertension Qualified Code(s): I10 - Essential (primary) hypertension (5) Ulcer of right foot with fat layer exposed Code(s): L97.512 - NON-PRS CHRONIC ULCER OTH PRT RIGHT FOOT W FAT LAYER EXPOSED This patient is new to me today: No Emergency Visit: Yes ED Registration Date: 03/11/18 Care time: The patient presented to the Emergency Department on the above date and was hospitalized for further evaluation of their emergent condition. Critical Care patient: No - Discharge Referral Referred to [facility] No
== END 2018-03-17 18:28 | disposition home health service (06) | DRG 603 ==
LOC: JER 13:27 → JERBED 17:47 → J7W 20:12
PROVIDERS: ADMIT Internal Medicine; ATTEND Internal Medicine
PROC: 02HV33Z Insertion of Infusion Device into Superior Vena Cava, Percutaneous Approach (ICD-10-PCS; principal; 2018-03-17)
PROC: B518ZZA Fluoroscopy of Superior Vena Cava, Guidance (ICD-10-PCS; 2018-03-17)
DX: L03.115 Cellulitis of right lower limb (principal); L97.518 Non-pressure chronic ulcer of other part of right foot with other specified severity; I10 Essential (primary) hypertension; E78.5 Hyperlipidemia, unspecified; Z96.651 Presence of right artificial knee joint; E66.9 Obesity, unspecified; Z68.38 Body mass index [BMI] 38.0-38.9, adult; L02.415 Cutaneous abscess of right lower limb; L29.9 Pruritus, unspecified; R19.7 Diarrhea, unspecified
CPT/HCPCS: 36415; 36569; 71045-TC-FY; 73590-TC-RT-FY; 73610-TC-RT-FY; 73630-TC-RT-FY; 73700-TC-RT; 76882-TC-RT-FY; 77001-TC-FY; 80048; 80053; 81003; 81015; 83605; 83735; 84100; 84484; 85025; 85027; 85610; 85730; 87040; 87070; 87086; 87186; 87205; 93005; 93010; 93971-TC; 97116-GP; 97161-GP; 99284-25; C1751; G0480; J0131

== ENCOUNTER → 2020-02-16 | Day surgery (SDC) | payer BC | END | disposition home or self-care (01) | LOC: JRADIR 09:28 | PROVIDERS: ATTEND Internal Medicine Endocrinology, Diabetes & Metabolism | PROC: 0G9K3ZX Drainage of Thyroid Gland, Percutaneous Approach, Diagnostic (ICD-10-PCS; principal; 2020-02-16) | DX: E04.1 Nontoxic single thyroid nodule (principal) | CPT/HCPCS: 76942; 88173; 88305-TC ==

== ENCOUNTER → 2020-02-29 | Day surgery (SDC) | payer BC | END | disposition home or self-care (01) | LOC: JRADIR 10:13 | PROVIDERS: ATTEND Internal Medicine Endocrinology, Diabetes & Metabolism | PROC: 0G9K3ZX Drainage of Thyroid Gland, Percutaneous Approach, Diagnostic (ICD-10-PCS; principal; 2020-02-29) | DX: E04.1 Nontoxic single thyroid nodule (principal) | CPT/HCPCS: 76942; 88173; 88305-TC ==

== ENCOUNTER 2021-12-13 09:17 | Inpatient (IN) | payer BC ==
[2021-12-13 09:38] VITALS: BMI 43.0
[2021-12-13 10:34] LABS: BASO % 0.7 % (0-2.0); EOS % 0.1 % (0-4.5); HEMATOCRIT 38.8 % (32.4-45.2); HEMOGLOBIN 13.1 GM/dL (10.7-15.3); LYMPH % 9.2 % (8-40); MCHC 33.7 g/dl (32.0-36.0); MONO % 6.1 % (3.8-10.2); NEUT % 83.9 % (42.8-82.8); PLATELET COUNT 201 10^3/uL (134-434); RBC 4.51 M/mm3 (3.60-5.2); RDW 13.7 % (11.6-15.6); WHITE BLOOD COUNT 15.6 K/mm3 (4.0-10.0)
[2021-12-13 10:48] LABS: ALBUMIN 3.5 g/dl (3.4-5.0); BLOOD UREA NITROGEN 19.6 mg/dL (7-18); CALCIUM 9.7 mg/dL (8.5-10.1)
[2021-12-13 10:53] LABS: BILIRUBIN,TOTAL 0.8 mg/dL (0.2-1); TOT PROT 7.3 g/dl (6.4-8.2)
[2021-12-13] MEDS ORDERED: LIDOCAINE 5% TOPICAL PATCH TP ONE (11:51)
[2021-12-13] MEDS ORDERED: ACETAMINOPHEN 1000 MG/100 ML BAG IVPB ONE (11:51)
[2021-12-13] MEDS ORDERED: ACETAMINOPHEN INJECTION 100 ML IVPB ONE (11:56)
[2021-12-13] MEDS ORDERED: LIDOCAINE 5% TOPICAL PATCH ONE (11:56)
[2021-12-13] MEDS ORDERED: HEPARIN NA (PORCINE) 5,000 UNITS/ML 1ML VIAL IVPUSH PRN ×2 (12:22)
[2021-12-13 14:06] LABS: INR 1.23 (0.83-1.09); PROTHROMBIN TIME (PATIENT) 14.2 SEC (9.7-13.0)
[2021-12-13 14:08] LABS: ACTIVATED PTT 31.6 SECONDS (25.2-36.5)
[2021-12-13] MEDS ORDERED: HEPARIN NA (PORCINE) 5,000 UNITS/ML 1ML VIAL ONE ×2 (14:29→22:06)
[2021-12-13] MEDS: HEPARIN SOD,PORK IN 0.45% NACL 25,000 UNITS/500 ML INFUS.BAG IVPB SCH (14:34)
[2021-12-13] MEDS ORDERED: NIFEdipine E.R 60 MG TABLET ONE (22:06)
[2021-12-13] MEDS ORDERED: NIFEdipine E.R. 30 MG TABLET ONE (22:06)
[2021-12-13] MEDS: NIFEdipine E.R. 90 MG TABLET PO SCH (22:10)
[2021-12-13] MEDS: LIDOCAINE PATCH REMOVAL MC SCH (23:00)
[2021-12-14 08:52] LABS: BLOOD UREA NITROGEN 14.3 mg/dL (7-18); CALCIUM 8.8 mg/dL (8.5-10.1); MAGNESIUM 2.1 mg/dL (1.8-2.4)
[2021-12-14 08:54] LABS: ALBUMIN 2.9 g/dl (3.4-5.0)
[2021-12-14 08:56] LABS: CREATININE 0.7 mg/dL (0.55-1.3); PHOSPHOROUS 2.6 mg/dL (2.5-4.9)
[2021-12-14 08:57] LABS: BILIRUBIN,TOTAL 0.7 mg/dL (0.2-1); TOT PROT 6.5 g/dl (6.4-8.2)
[2021-12-14] MEDS ORDERED: POTASSIUM CHLORIDE TABS 20 MEQ TABLET.ER (FP) PO ONE ×2 (10:37→10:56)
[2021-12-14] MEDS ORDERED: VALSARTAN 80 MG TABLET ONE (10:55)
[2021-12-14] MEDS: VALSARTAN 160 MG TABLET PO SCH (11:09)
[2021-12-14] MEDS: HEPARIN SOD,PORK IN 0.45% NACL 25,000 UNITS/500 ML INFUS.BAG IVPB SCH (15:52)
[2021-12-14] MEDS ORDERED: CEFTRIAXONE 1 GM/50 ML BAG ONE (15:54)
[2021-12-14] MEDS ORDERED: APIXABAN 5 MG TABLET ONE ×2 (15:54→20:21)
[2021-12-14] MEDS: CEFTRIAXONE 1 GM in DEXTROSE 5%-WATER - 50 ML IVPB SCH (15:54)
[2021-12-14] MEDS: APIXABAN 5 MG TABLET PO SCH ×2 (15:54→20:23)
[2021-12-14] MEDS ORDERED: NIFEdipine E.R 60 MG TABLET ONE (20:21)
[2021-12-14] MEDS ORDERED: NIFEdipine E.R. 30 MG TABLET ONE (20:21)
[2021-12-14] MEDS: NIFEdipine E.R. 90 MG TABLET PO SCH (20:23)
[2021-12-14] MEDS: LIDOCAINE PATCH REMOVAL MC SCH (20:44)
[2021-12-15 09:11] LABS: HEMATOCRIT 36.8 % (32.4-45.2); HEMOGLOBIN 12.6 GM/dL (10.7-15.3); MCH 29.7 pg (25.7-33.7); MCHC 34.3 g/dl (32.0-36.0); MEAN CELL VOLUME 86.5 fl (80-96); MEAN PLT VOLUME 8.1 fl (7.5-11.1); PLATELET COUNT 212 10^3/uL (134-434); RBC 4.25 M/mm3 (3.60-5.2); RDW 13.3 % (11.6-15.6)
[2021-12-15 09:50] LABS: ALBUMIN 2.8 g/dl (3.4-5.0); BLOOD UREA NITROGEN 12.9 mg/dL (7-18)
[2021-12-15 09:54] LABS: CALCIUM 8.9 mg/dL (8.5-10.1)
[2021-12-15 09:58] LABS: BILIRUBIN,TOTAL 0.6 mg/dL (0.2-1); CREATININE 0.7 mg/dL (0.55-1.3); MAGNESIUM 1.9 mg/dL (1.8-2.4); TOT PROT 6.3 g/dl (6.4-8.2)
[2021-12-15] MEDS: CEFTRIAXONE 1 GM in DEXTROSE 5%-WATER - 50 ML IVPB SCH (10:12)
[2021-12-15] MEDS: VALSARTAN 160 MG TABLET PO SCH (10:12)
[2021-12-15] MEDS: APIXABAN 5 MG TABLET PO SCH ×2 (10:12→21:32)
[2021-12-15 10:55] LABS: EPI CELLS 29 /uL (0-25.1); HYALINE CASTS 11 /uL (0-3.1); PH,URINE 5.5 (5.0-8.0); URINE APPEARANCE CLOUDY; URINE BACTERIA 243 /uL (0-1359); URINE BILIRUBIN NEGATIVE (NEGATIVE); URINE COLOR DK YELLOW; URINE GLUCOSE (UA) NEGATIVE (NEGATIVE); URINE KETONE TRACE (NEGATIVE); URINE LEUK ESTERASE 1+ (NEGATIVE); URINE NITRITE NEGATIVE (NEGATIVE); URINE PROTEIN 1+ (NEGATIVE); URINE RBC 5 /uL (0-23.9); URINE WBC 159 /uL (0-25.8)
[2021-12-15] MEDS ORDERED: ACETAMINOPHEN 325 MG TABLET (FP) PO PRN (14:26)
[2021-12-15] MEDS: LIDOCAINE PATCH REMOVAL MC SCH (21:32)
[2021-12-15] MEDS: NIFEdipine E.R. 90 MG TABLET PO SCH (21:32)
[2021-12-16 09:14] LABS: HEMATOCRIT 35.6 % (32.4-45.2); HEMOGLOBIN 11.9 GM/dL (10.7-15.3); MCH 28.9 pg (25.7-33.7); MCHC 33.3 g/dl (32.0-36.0); MEAN CELL VOLUME 86.6 fl (80-96); MEAN PLT VOLUME 8.3 fl (7.5-11.1); PLATELET COUNT 234 10^3/uL (134-434); RBC 4.11 M/mm3 (3.60-5.2); RDW 13.3 % (11.6-15.6); WHITE BLOOD COUNT 9.2 K/mm3 (4.0-10.0)
[2021-12-16 09:31] LABS: ALBUMIN 2.6 g/dl (3.4-5.0); CALCIUM 8.6 mg/dL (8.5-10.1)
[2021-12-16 09:34] LABS: CREATININE 0.7 mg/dL (0.55-1.3)
[2021-12-16 09:36] LABS: BILIRUBIN,TOTAL 0.4 mg/dL (0.2-1); TOT PROT 5.9 g/dl (6.4-8.2)
[2021-12-16] MEDS: CEFTRIAXONE 1 GM in DEXTROSE 5%-WATER - 50 ML IVPB SCH (10:22)
[2021-12-16] MEDS: VALSARTAN 160 MG TABLET PO SCH (10:22)
[2021-12-16] MEDS: APIXABAN 5 MG TABLET PO SCH ×2 (10:22→21:52)
[2021-12-16] MEDS: HYDROCORTISONE 0.5% TOPICAL CREAM 30 GM TUBE TP SCH ×2 (12:00→21:53)
[2021-12-16] MEDS: NIFEdipine E.R. 90 MG TABLET PO SCH (21:53)
[2021-12-16] MEDS: LIDOCAINE PATCH REMOVAL MC SCH (21:53)
[2021-12-17 08:19] LABS: HEMATOCRIT 34.6 % (32.4-45.2); HEMOGLOBIN 11.6 GM/dL (10.7-15.3); MCHC 33.5 g/dl (32.0-36.0); MEAN CELL VOLUME 86.6 fl (80-96); MEAN PLT VOLUME 8.3 fl (7.5-11.1); PLATELET COUNT 241 10^3/uL (134-434); RDW 13.5 % (11.6-15.6); WHITE BLOOD COUNT 7.5 K/mm3 (4.0-10.0)
[2021-12-17 08:39] LABS: BLOOD UREA NITROGEN 15.6 mg/dL (7-18); CALCIUM 8.8 mg/dL (8.5-10.1)
[2021-12-17 08:40] LABS: ALBUMIN 2.6 g/dl (3.4-5.0)
[2021-12-17 08:43] LABS: CREATININE 0.7 mg/dL (0.55-1.3)
[2021-12-17 08:44] LABS: TOT PROT 5.9 g/dl (6.4-8.2)
[2021-12-17 08:45] LABS: BILIRUBIN,TOTAL 0.4 mg/dL (0.2-1)
[2021-12-17] MEDS: CEFTRIAXONE 1 GM in DEXTROSE 5%-WATER - 50 ML IVPB SCH (10:07)
[2021-12-17] MEDS: VALSARTAN 160 MG TABLET PO SCH (10:08)
[2021-12-17] MEDS: APIXABAN 5 MG TABLET PO SCH (10:08)
[2021-12-17] MEDS: HYDROCORTISONE 0.5% TOPICAL CREAM 30 GM TUBE TP SCH (10:09)
[2021-12-17 15:50] VITALS: BP 143/67; PULSE 88; RESP 19; TEMP 98.3
== END 2021-12-17 15:33 | disposition home or self-care (01) | DRG 177 ==
LOC: JER 09:17 → JERBED 16:09 → J4S 12-14 21:53
PROVIDERS: ADMIT Internal Medicine; ATTEND Nurse Practitioner Family
DX: U07.1 COVID-19 (principal); I26.99 Other pulmonary embolism without acute cor pulmonale; J12.82 Pneumonia due to coronavirus disease 2019; Z68.41 Body mass index [BMI] 40.0-44.9, adult; I10 Essential (primary) hypertension; E78.5 Hyperlipidemia, unspecified; D72.829 Elevated white blood cell count, unspecified; E87.6 Hypokalemia; E66.01 Morbid (severe) obesity due to excess calories
CPT/HCPCS: 0241U-QW; 36415; 71045-TC-FY; 71275-TC; 80053; 80061; 81003; 82962; 83036; 83735; 84100; 84439; 84443; 84484; 85025; 85027; 85610; 85730; 86140; 86850; 86900; 86901; 87040; 87086; 87899; 93005; 93010; 93306-TC; 93970-TC; 94010; 94761; 97116-GP; 97162-GP; 99285-25; J1644; Q9967